=== PATIENT | female | born 1965 | race Caucasian/White ===

== ENCOUNTER 2018-06-14 11:00 | Outpatient (RCR) | payer MEDICAID, SELFPAY | END 2018-07-06 14:25 | disposition home or self-care (01) | LOC: PT.CARL 11:00 | PROVIDERS: Visit Provider Nurse Practitioner Family | DX: M25.552 Pain in left hip (principal); M25.551 Pain in right hip | CPT/HCPCS: 97014; 97110; 97163; G0283 ==

== ENCOUNTER → 2021-01-10 14:10 | Outpatient (CLI) | payer MEDICAID, SELFPAY ==
[2021-01-10 14:20] LABS: Basophils % 0.5 % (0.1-2.0); Eosinophils # 0.1 K/mm3 (0.0-0.4); Hematocrit 41.2 % (37.0-47.0); Hemoglobin 13.5 g/dL (12.2-16.2); Lymphocytes # 2.3 K/mm3 (0.7-4.5); Lymphocytes % 27.6 % (10-50); Mean Corpuscular HGB Conc 32.8 g/dL (31.8-35.4); Mean Corpuscular Hemoglobin 30.4 pg (27.0-31.2); Mean Corpuscular Volume 92.7 fl (81-99); Mean Platelet Volume 8.4 fl (7.4-10.4); Monocytes # 0.7 K/mm3 (0.1-1.0); Monocytes % 8.1 % (1.7-9.3); Neutrophils # 5.3 K/mm3 (1.8-7.8); Neutrophils % 62.8 % (37.0-80.0); Platelet Count 695 K/mm3 (142-424); Red Blood Count 4.44 M/mm3 (4.20-5.40); Red Cell Distribution Width 13.7 % (11.5-17.5); White Blood Count 8.5 K/mm3 (4.8-10.8)
[2021-01-10 14:21] LABS: Alanine Aminotransferase 24 U/L (12-78); Albumin Level 3.7 g/dl (3.5-5.0); Albumin/Globulin Ratio 1.4 (1.1-1.8); Alkaline Phosphatase 102 U/L (38-126); Anion Gap 13.7 mEq/L (5-15); Aspartate Amino Transferase 24 U/L (14-36); Bilirubin,Total 0.4 mg/dl (0.2-1.3); Blood Urea Nitrogen 8 mg/dl (7-17); Calcium 9.3 mg/dl (8.4-10.2); Carbon Dioxide 25 mmol/L (22.0-30.0); Chloride 107 mmol/L (98-107); Chol/HDL Ratio 3.6 (1-3.5); Cholesterol 180 mg/dl (140-200); Estimated Glomerular Filt Rate 128 ml/min (>60); GFR (African American) 155 ML/MIN (>60); Globulin 2.7 g/dL (1.3-3.2); Glucose 99 mg/dl (74-100); HDL Cholesterol 50 mg/dl (40-60); Potassium 4.7 mmoL/L (3.5-5.1); Sodium 141 mmol/L (136-145); Total Protein,Serum 6.4 g/dl (6.3-8.2); Triglycerides 169 mg/dl (30-150); VLDL Cholesterol 34 mg/dL (0-40)
[2021-01-10 14:32] LABS: Direct LDL Cholesterol 92.49 mg/dL (100-129)
[2021-01-10 14:38] LABS: 25-OH Vitamin D, Total 17.8 ng/mL (30-100)
[2021-01-10 14:39] LABS: Free T4 (Free Thyroxine) 1.34 ng/dl (0.78-2.19)
[2021-01-10 14:52] LABS: Thyroid Stimulating Hormone 0.72 uIU/mL (0.465-4.68)
== END ==
PROVIDERS: Visit Provider Emergency Medicine
DX: R53.83 Other fatigue (principal); E55.9 Vitamin D deficiency, unspecified; Z79.899 Other long term (current) drug therapy
CPT/HCPCS: 80053; 80061; 82306; 84439; 84443; 85025

== ENCOUNTER 2021-02-02 08:41 | Emergency (ER) | payer MEDICAID, SELFPAY ==
[2021-02-02 08:42] VITALS: BP 120/63; PULSE 90; RESP 20; TEMP 37; O2SAT 98; BMI 27.9
--- NOTE | 2021-02-02 08:57 | XR_ITS ---
PROCEDURE INFORMATION: Exam: XR Chest Exam date and time: 02/02/2021 8:57 AM Age: 55 years old Clinical indication: Shortness of breath; Additional info: SOA TECHNIQUE: Imaging protocol: XR of the chest. Views: 1 view. COMPARISON: ROYCE SHOU3R [id number] [id number] 09/05/2014 1:40 PM FINDINGS: Lungs: There are small peripheral infiltrates in the right upper lobe laterally in the left mid lung field. Pleural spaces: No pleural effusion. No pneumothorax. Heart/Mediastinum: No cardiomegaly. Bones/joints: Unremarkable. IMPRESSION: 1. Small peripheral infiltrates, a nonspecific finding. An atypical pneumonia including viral pneumonia should be excluded. 2. A follow-up PA and lateral radiograph is recommended.
[2021-02-02 08:59] LABS: Coronavirus 19, PCR Not Detected (NotDetected); Influenza A, PCR Not Detected (NotDetected); Influenza B, PCR Not Detected (NotDetected)
--- NOTE | 2021-02-02 09:00 | HMH.EDGENADL ---
ED Disposition Clinical Impression: Upper respiratory infection, URI (upper respiratory infection) Disposition: Home, Self-Care Condition on Discharge: Fair Instructions: DI for Acute Bronchitis Referrals: Ty Waggoner MD [Primary Care Provider] - - Critical Care Critical Care Time: No Attestation: On , the high probability of a clinically significant, sudden or life threatening deterioration of the following system(s) required my full and direct attention, intervention and personal management. The time I documented below is in addition to time spent performing reported procedures but includes the following listed in this critical care notation. Medical Decision Making - Medical Records Medical records reviewed: Yes: I reviewed the patient's medical records. - Maurice Inquiry Pt receiving controlled substance: No Maurice was queried for this patient: No Vital Signs: 02/02/21 08:42 Temperature 98.6 F Temperature Source Oral Pulse Rate [Radial] 90 Respiratory Rate 20 Blood Pressure [Right Arm] 120/63 Blood Pressure Mean [Right Arm] 82 Blood Pressure Position [Right Arm] Sitting 02 Sat by Pulse Oximetry 98 Oxygen Delivery Method Room Air Orders (Tests/Meds): ED MEDICATIONS Discontinued Medications Generic Name Dose Route Start Last Admin Trade Name Freq PRN Reason Stop Dose Admin Dexamethasone 10 mg 02/02/21 08:57 Dexamethasone 1mg/1ml Intensol 10ml Udc (Er) PO 02/02/21 08:58 ONCE ONE ORDERS Category Date Time Status XR chest portable Stat Exams 02/02/21 08:57 Taken Complete Blood Count Auto Diff Stat Lab 02/02/21 08:57 Ordered Comprehensive Metabolic Panel Stat Lab 02/02/21 08:57 Ordered Rapid PCR Covid and Flu A/B Stat Lab 02/02/21 08:55 Received Medical Decision Narrative: To the emergency department with chief complaint of cough, rhinorrhea, ocular aches. Differential diagnosis includes upper respiratory infection, pneumonia, COPD exacerbation, hypokalemia, medication side effect. Given this plan order CBC, CMP, chest x-ray, treat patient with dexamethasone, nebs. On evaluation patient was hemodynamically stable, vitals within normal limits. General Adult HPI - General Chief complaint: Upper Respiratory Infection Stated complaint: Diarrhea,cough,weakness Time Seen by Provider: 02/02/21 08:50 Mode of Arrival: Ambulatory Source of Information: Patient, Medical Record Limitations: No Limitations Description of Symptoms (Recalled from ER Triage Doc. by RN): TO ED PER [facility] CAR WITH C/O COUGH, CONGESTION, GENERALIZED ACHES, SOB, PAIN LT SIDE LUNG X 2 DAYS. PT STATES I THINK I'VE BEEN RUNNING A FEVER . - History of Present Illness HPI narrative: COPD, emphysema, sleep apnea who is presenting with chief complaint of her, shortness of breath, muscular aches and diarrhea. She states that she has had these symptoms for 3 days. She does have inhalers at home, but went to stay with her sister last night did not take them nor was she on her CPAP last night. She believes she has had a fever but does not know the temperature. She had a runny bowel movements, but no emesis, abdominal pain, nausea. She has a productive cough, that seems different from her previous cough. She had Covid in October. She denies any chest pain. - Related Data Home Medications Medication Instructions Recorded Confirmed albuterol sulfate 90 mcg/actuation 2 puff INHALATION Q4-6H PRN 12/13/20 01/10/21 aerosol inhaler diclofenac sodium 75 mg 75 mg PO .qd PRN tab 12/13/20 01/10/21 tablet,delayed release fluticasone fur. 100 mcg-umeclid 1 inh INHALATION DAILY 12/13/20 01/10/21 62.5 mcg-vilant 25 mcg inhalat.powder furosemide 20 mg tablet 20 mg PO DAILY tab 12/13/20 01/10/21 metoprolol succinate 25 mg 25 mg PO DAILY 12/13/20 01/10/21 tablet,extended release 24 hr nicotine 21 mg/24 hr daily 1 patch TRANSDERMA DAILY 12/13/20 01/10/21 transdermal patch omeprazole 40 mg c
[2021-02-02 09:25] LABS: Basophils # 0.1 K/mm3 (0-0.2); Basophils % 0.5 % (0.1-2.0); Eosinophils # 0.2 K/mm3 (0.0-0.4); Eosinophils % 2.1 % (0.1-12.0); Hematocrit 39.9 % (37.0-47.0); Hemoglobin 12.8 g/dL (12.2-16.2); Lymphocytes # 2.6 K/mm3 (0.7-4.5); Lymphocytes % 28.3 % (10-50); Mean Corpuscular Hemoglobin 31.1 pg (27.0-31.2); Mean Corpuscular Volume 97.2 fl (81-99); Mean Platelet Volume 7.9 fl (7.4-10.4); Monocytes # 0.4 K/mm3 (0.1-1.0); Monocytes % 4.2 % (1.7-9.3); Neutrophils # 5.9 K/mm3 (1.8-7.8); Neutrophils % 64.9 % (37.0-80.0); Platelet Count 486 K/mm3 (142-424); Red Cell Distribution Width 14.5 % (11.5-17.5); White Blood Count 9.1 K/mm3 (4.8-10.8)
[2021-02-02 09:29] LABS: Chloride 109 mmol/L (98-107); Potassium 3.7 mmoL/L (3.5-5.1); Sodium 140 mmol/L (136-145)
[2021-02-02 09:32] LABS: Alanine Aminotransferase 24 U/L (12-78); Albumin Level 3.6 g/dl (3.5-5.0); Albumin/Globulin Ratio 1.2 (1.1-1.8); Alkaline Phosphatase 107 U/L (38-126); Anion Gap 8.7 mEq/L (5-15); Aspartate Amino Transferase 27 U/L (14-36); Bilirubin,Total 0.2 mg/dl (0.2-1.3); Blood Urea Nitrogen 7 mg/dl (7-17); Carbon Dioxide 26 mmol/L (22.0-30.0); Creatinine Clearance Estimated 112 mL/min (50-200); Estimated Glomerular Filt Rate 87 ml/min (>60); GFR (African American) 105 ML/MIN (>60); Glucose 109 mg/dl (74-100); Total Protein,Serum 6.6 g/dl (6.3-8.2)
[2021-02-02 10:44] VITALS: BP 123/65; PULSE 78; RESP 18; TEMP 36.6; O2SAT 98
== END 2021-02-02 10:46 | disposition home or self-care (01) ==
PROVIDERS: Emergency Provider Emergency Medicine; PCP Emergency Medicine
DX: J44.1 Chronic obstructive pulmonary disease with (acute) exacerbation (principal); J44.0 Chronic obstructive pulmonary disease with (acute) lower respiratory infection; I25.10 Atherosclerotic heart disease of native coronary artery without angina pectoris; E78.5 Hyperlipidemia, unspecified; F17.210 Nicotine dependence, cigarettes, uncomplicated; Z79.899 Other long term (current) drug therapy
CPT/HCPCS: 71045; 80053; 85025; 96374; 99283; U0003

== ENCOUNTER → 2021-02-13 10:52 | Outpatient (CLI) | payer MEDICAID, SELFPAY ==
[2021-02-13 12:18] LABS: NT Pro Brain Natriuretic Pep. 64.3 pg/mL (0-125)
== END ==
PROVIDERS: Visit Provider Internal Medicine Cardiovascular Disease
DX: R06.02 Shortness of breath (principal)
CPT/HCPCS: 36415; 83880

== ENCOUNTER → 2021-03-03 12:11 | Outpatient (CLI) | payer MEDICAID, SELFPAY ==
--- NOTE | 2021-03-03 12:12 | CA_ITS ---
APPROVED REPORT EXAM: Comprehensive 2D, Doppler, and color-flow Echocardiogram Lowerator Operator: Rosaura Pride RDCS Ht: 5 ft 6 in Wt: 172lbs BSA: 1.88 BP: 114/73 mmHg Indications: CP 2D Dimensions LVOT 1.81 cm (M/F) 1.5-2.5 M-Mode Dimensions RVDd 2.28 cm (0.9-2.6) LA Diam 2.71 cm (1.9-4.0) LVDd 5.57 cm (3.5-5.7) Ao Diam 3.20 cm (2.0-3.7) LVDs 3.45 cm (3.5-5.7) IVSd 0.76 cm (0.6-1.1) PWd 0.99 cm (0.6-1.1) EF (Teich) 67.70% FS 38.10% EDV (Teich) 151.80 mL TAPSE 2.02 (<1.7) ESV (Teich) 49.10 mL LV Diastology E Decel Time 243.00 (160-240 msec) E/A Ratio 0.9 MED E' 5.80 (< 7 cm/sec) E'/MED E' Ratio 12.79 (>14) LAT E' 8.40 (<10 cm/sec) E/LAT E' Ratio 8.83 (>14) Aortic Valve LVOT Max 138.00 (70-110 cm/s) LVOT VTI 25.81 cm AoV Peak Melvin. 166.00 (50-130 cm/s) AI PHT 715.00 ms AO Peak GR. 11.10 mmHg AO Mean GR. 5.50 (<5 mmHg) AO VTI 29.77 (18-25 cm) TARAS (VTI) 2.23 (2.5-4.5 cm2) Mitral Valve MV E Max Melvin. 74.00 (40-130 cm/s) MV A Velocity 86.00 (40-130 cm/s) E/A Ratio 0.86 MV Decel. Time 243.00 (160-240 ms) MV PHT 71.00 ms Left Ventricle Left atrium is mildly enlarged, left ventricle is normal size, left ventricle wall thickness is upper limit of normal, there is preserved left ventricular systolic function, visually estimated ejection fraction 55% with no regional wall motion abnormality, Doppler evidence of impaired LV relaxation seen, tissue Doppler is not indicated above raise left atrial pressure. Right Ventricle Right atrium and right ventricle are normal size and contractility. Aortic Valve Aortic valve is minimally thickened and fibrosed, there is no aortic stenosis, there is mild aortic insufficiency. Mitral Valve Mitral valve grossly normal, there is trace mitral regurgitation. Tricuspid Valve Tricuspid valve grossly normal, there is trace tricuspid regurgitation, tricuspid regurgitation jet velocity is inadequate for calculation of the right ventricular systolic pressure. Pulmonic Valve Pulmonic valve is poorly visualized. Great Vessels Aortic root is normal size. Pericardium No significant pericardial effusion noted. Conclusion 1. Mildly enlarged left atrium, normal left ventricular size, visually estimated ejection fraction 55% with no regional wall motion abnormality, Doppler evidence of impaired LV relaxation seen, tissue Doppler is not indicated above raise left atrial pressure. 2. Mild aortic, trace mitral and tricuspid regurgitation. 3. No significant pericardial effusion noted. Electronically signed by : Eric Blanchard MD 03/03/2021 19:29:29
--- NOTE | 2021-03-03 12:12 | CA_ITS ---
APPROVED REPORT Correctional Counselor: SHADI Laterality: Bilateral Study Quality: Good Indications: dyspnea/tob use Risk Factors Hypertension: Doppler Spectral Velocity Analysis dICA (R) 51.10/22.10 cm/s dICA (L) 84.80/35.10 cm/s Sowmya (R) 56.00/20.50 cm/s Sowmya (L) 61.30/21.30 cm/s pICA (R) 52.80/16.40 cm/s pICA (L) 47.00/17.60 cm/s dCCA (R) 86.00/23.40 cm/s dCCA (L) 63.60/15.30 cm/s pCCA (R) 67.40/18.20 cm/s pCCA (L) 77.80/19.70 cm/s Vert (R) 51.30/15.50 cm/s Vert (L) 63.90/16.30 cm/s ICA/CCA 0.70 ICA/CCA 1.30 Findings The right carotid arterial system appeared to be normal without stenosis of the bulb or internal carotid artery. The left carotid arterial system appeared to be normal without stenosis of the bulb or internal carotid artery. Antegrade flow seen bilateral vertebral arteries. Conclusion The right carotid arterial system appeared to be normal without stenosis of the bulb or internal carotid artery. The left carotid arterial system appeared to be normal without stenosis of the bulb or internal carotid artery. Antegrade flow seen bilateral vertebral arteries. Electronically signed by : Srinath Ochoa MD 03/03/2021 17:15:12
--- NOTE | 2021-03-03 13:06 | CT_ITS ---
PROCEDURE: CT CHEST WO CON CLINICAL INDICATION: dyspnea/tob use COMPARISON: CR XR CHEST PORTABLE from 02/02/2021 TECHNIQUE: Axial images obtained with sagittal and coronal reformats. All CT scans at the facility use one or more dose reduction, viz: automated exposure control, ma/kV adjustment per patient size (including targeted exams where dose is matched to indication, i.e. head), or iterative reconstruction technique. FINDINGS: HEART AND MEDIASTINAL STRUCTURES: There are few scattered mildly prominent mediastinal lymph nodes the largest in the precarinal region at 2.2 by 1 cm. LUNGS AND PLEURAL SPACES: COPD changes with centrilobular emphysema. There is a right apical bulla at 3.5 cm. There are scattered areas of scarring. A 4 mm noncalcified nodules present in the right upper lobe anteriorly the 39 series 3. No suspicious nodules apparent. There are some fibrotic changes in the right upper lobe laterally. No effusions. No lobar consolidation or collapse. BONY STRUCTURES: No acute bony abnormalities apparent. UPPER ABDOMEN: There is a isodense lesion of the left kidney measuring near water density at 2.5 cm suggesting left renal cyst. This is incompletely imaged. ADDITIONAL FINDINGS: No other significant abnormalities. IMPRESSION: COPD with centrilobular emphysema with scattered areas of scarring. Mildly prominent mediastinal lymph nodes. Previously noted increased density in the right upper lobe on the chest x-ray of 02/02/2021 is felt to be related to an area of scarring. There is a 4 mm nodule in the right upper lobe nonspecific. No suspicious nodules are apparent. Suggest 12 month follow-up in this patient with positive smoking history. Isodense lesion left kidney suggesting a renal cyst. Dictated by: Srinath Ochoa MD 03/04/2021 12:48 Srinath Ochoa MD in [facility] 03/04/2021 12:48
== END ==
PROVIDERS: PCP Emergency Medicine; Visit Provider Internal Medicine Cardiovascular Disease
DX: R06.00 Dyspnea, unspecified (principal); I65.23 Occlusion and stenosis of bilateral carotid arteries; J44.9 Chronic obstructive pulmonary disease, unspecified; E78.5 Hyperlipidemia, unspecified; K21.9 Gastro-esophageal reflux disease without esophagitis; G47.33 Obstructive sleep apnea (adult) (pediatric); Z72.0 Tobacco use; Z99.89 Dependence on other enabling machines and devices
CPT/HCPCS: 71250; 93306; 93880

== ENCOUNTER → 2021-03-17 14:07 | Outpatient (CLI) | payer MEDICAID, SELFPAY ==
--- NOTE | 2021-03-17 14:10 | XR_ITS ---
PROCEDURE: XR LUMBAR SPINE MIN 4V CLINICAL INDICATION: back pain COMPARISON: No exams were available for comparison FINDINGS: There is degenerative disc disease at T11-T12 and L5-S1 and to lesser degree at L2-L3 and L4-L5. No fracture or dislocation. No lytic or blastic change. Other findings:Mild degenerative changes the left SI joint. IMPRESSION: Lumbar spondylosis as described above Dictated by: Srinath Ochoa MD 03/17/2021 15:36 Srinath Ochoa MD in [facility] 03/17/2021 15:36
--- NOTE | 2021-03-17 14:10 | XR_ITS ---
PROCEDURE: XR HIP LT 2-3V W/PELVIS CLINICAL INDICATION: hip pain COMPARISON: No exams were available for comparison FINDINGS: No fracture or dislocation is evident. No significant degenerative change. No lytic or blastic change. Unremarkable soft tissues. IMPRESSION: No acute findings. Dictated by: Srinath Ochoa MD 03/17/2021 15:39 Srinath Ochoa MD in [facility] 03/17/2021 15:39
--- NOTE | 2021-03-17 14:10 | XR_ITS ---
PROCEDURE: XR HIP RT 2-3V W/PELVIS CLINICAL INDICATION: hip pain COMPARISON: CR XR HIP LT 2-3V W/PELVIS from 03/17/2021 FINDINGS: No fracture or dislocation is evident. No significant degenerative change. No lytic or blastic change. Unremarkable soft tissues. IMPRESSION: No acute findings. Dictated by: Srinath Ochoa MD 03/17/2021 15:14 Srinath Ochoa MD in [facility] 03/17/2021 15:14
== END ==
PROVIDERS: PCP Emergency Medicine; Visit Provider Emergency Medicine
DX: M25.552 Pain in left hip (principal); M25.551 Pain in right hip; M54.9 Dorsalgia, unspecified
CPT/HCPCS: 72110; 73502

== ENCOUNTER → 2021-03-27 10:17 | Outpatient (POV) | payer MEDICAID, SELFPAY ==
[2021-03-27 11:02] VITALS: BP 118/80; PULSE 88; RESP 18; O2SAT 92; BMI 27.9
--- NOTE | 2021-03-27 12:06 | HMH.PMCON ---
Assessment and Plan (1) Sacroiliitis Status: Chronic Category: Medical Code(s): M46.1 - Sacroiliitis, not elsewhere classified (2) Trochanteric bursitis Status: Chronic Category: Medical Code(s): M70.60 - Trochanteric bursitis, unspecified hip (3) CRPS (complex regional pain syndrome), type I, upper Status: Chronic Category: Medical Code(s): G90.519 - Complex regional pain syndrome I of unspecified upper limb - Assessment and plan all Dx Assessment and Plan for all problems:: Patient does have pain in her bilateral low back area, but worse to the left low back area left hip and left buttock, groin and leg. Pain is worse with standing. She she does say walking improves the pain somewhat, however. She does also report heat to improve the pain. Lying on her left side causes significant pain. She is tender palpation to her left SI joint and left trochanteric bursa. We will schedule the patient for a left SI joint injection. She has tried physical therapy for more than 6 weeks and continues with home stretching. Following these injections we will then proceed to scheduling the patient for SI injection to the right side and trochanteric bursa injection to the right side. She will likely need to be worked up in the future for her CRPS type one of her right upper extremity following surgery with Dr. Nadine Newby. We will see the patient back in the clinic after her injections left SI joint and left trochanteric bursa for reevaluation of symptoms. HPI - Data of Consult Patient: new to practice Consult date: 03/27/21 Requesting Physician: Alice Cardenas APRN - Consult Narrative Reason for consult: Low back pain, hip pain History of present illness: Ms. Stapleton is a 55 year old female who presents today for consultation for low back pain with radiation into bilateral hips. Patient says that she has worse pain, however in the left low back area at this time. She says the pain is in the left low back with radiation into the left buttock and left groin. The pain does radiate down her left lateral thigh area and stops behind the knee. She also has bilateral hand pain worse to the right hand. She reports having a history of carpal tunnel surgery bilaterally with Dr. Espinoza and did have a surgery to her right elbow with Dr. Nadine Newby. She has swelling, temperature changes, color changes and pain into her fingers and hand right side. She is right-hand dominant. She has a decreased production intern and sensation to the right hand. She is unable to grasp objects without having significant pain and weakness. She is also complaining of severe muscle spasms in her low back area. Patient says the pain in her low back is worse with standing and lying on her left side. She says walking helps as well as heat. She has had physical therapy for more than 6 weeks with minimal relief. She has tried ibuprofen as well. She does say that she takes methotrexate for treatment with rheumatology. She rates her pain a 7 out of 10 today. She is very tender to palpation to her left hip and her left low back area. Patient also continues with home stretching. CC: Alice Cardenas APRN [facility] History I have reviewed the patient's past medical history: Yes Medical History: Reports:: Chronic Obstructive Pulmonary Disease (COPD), Coronary Artery Disease, Hyperlipidemia *Have you ever received a pneumonia vaccine?: No *Have you received a flu vaccine this season?: Yes Other Medical History: Reports: Arthritis, Other Laterality Cases: Bilateral: Carpal Tunnel Release Other Surgeries: Yes: Cardiac Catheterization, Colonoscopy, Plastic Surgery, Tubal Ligation, Other Amputation: No Fractures: No - *Social History Smoking Status: Current every day smoker Tobacco Type: cigarettes # Packs/Day (cigarettes): 1 Alcohol Intake: never Substance Use Type: denies use *Occupational Status:: unemployed *Travel in the last 8 weeks: None Family Hx:: Coronary Artery Disease, Di
== END ==
PROVIDERS: Visit Provider Clinical Nurse Specialist Family Health
DX: M46.1 Sacroiliitis, not elsewhere classified (principal); M70.60 Trochanteric bursitis, unspecified hip; G90.519 Complex regional pain syndrome I of unspecified upper limb
CPT/HCPCS: 99202; G0463

== ENCOUNTER 2021-05-02 09:32 | Day surgery (SDC) | payer MEDICAID, SELFPAY ==
[2021-05-02 09:35] VITALS: BP 116/65; PULSE 91; RESP 18; TEMP 36.7; O2SAT 95; BMI 27.9
[2021-05-02 10:05] VITALS: BP 110/63; PULSE 94; RESP 18; O2SAT 95
[2021-05-02 10:07] VITALS: BP 115/68; PULSE 94; RESP 18; O2SAT 96
[2021-05-02 10:25] VITALS: BP 132/76; PULSE 87; RESP 20; O2SAT 96
--- NOTE | 2021-05-02 10:30 | P.PCN_ITS ---
- Procedure Date: 05/02/21 Time: 10:30 Anesthesiologist:: Torsten Sarah MD Complications:: None Pre-procedure Diagnosis:: Sacroiliitis. Trochanteric bursitis. Post-procedure Diagnosis:: Same Indications for Procedure:: Patient is a pleasant 55-year-old white female who we are treating for low back pain and left hip pain. She is tender over the left SI joint. She is positive Hoa's test on left side. She is positive Teja test on left side. She is positive SI joint compression test on the left side. She is positive distraction test on left side. We will plan a left SI joint injection under fluoroscopy today to help with her pain symptoms. She is also tender over the left trochanteric bursa. We will also plan a left trochanteric bursa injection. Procedure Details:: Left SI joint injection under fluoroscopy Informed consent was obtained and the risks and benefits of the procedure was explained to the patient. Patient was taken to the procedure room. Patient was placed prone on the procedure table. The left hip was prepped using ChloraPrep. The skin and subcutaneous tissues were anesthetized using lidocaine. I placed a 22-gauge spinal needle into the inferior aspect of the left SI joint. Needle placement was confirmed with dye. After this we injected 5 mL bupivacaine 0.25% and Depo-Medrol 40 mg into the left SI joint. The patient tolerated the procedure well with no complication. Left trochanteric bursa injection under fluoroscopy informed consent was obtained and the risk and benefits of the procedure was explained to the patient. The patient was taken to procedure room and placed prone on the procedure table. The left hip was prepped using ChloraPrep. The skin and subcutaneous tissues were anesthetized using lidocaine. I placed a 22- gauge spinal needle under fluoroscopic guidance and advanced until it contacted the left greater trochanter. Needle placement was confirmed with dye. After this we injected 5 mL bupivacaine 0.25% and Depo-Medrol 40 mg. Patient tolerated the procedure well with no complications. Plan and Disposition:: We will follow-up with her in 2 weeks. Will reevaluate symptoms at that time.
== END 2021-05-02 10:25 | disposition home or self-care (01) ==
LOC: SC.PAINP 09:33
PROVIDERS: PCP Emergency Medicine; Visit Provider Anesthesiology
DX: M46.1 Sacroiliitis, not elsewhere classified (principal); M70.62 Trochanteric bursitis, left hip; I25.10 Atherosclerotic heart disease of native coronary artery without angina pectoris; E78.5 Hyperlipidemia, unspecified; J44.9 Chronic obstructive pulmonary disease, unspecified; Z72.0 Tobacco use; F41.9 Anxiety disorder, unspecified; F32.A Depression, unspecified; K75.9 Inflammatory liver disease, unspecified; Z79.82 Long term (current) use of aspirin; Z79.899 Other long term (current) drug therapy
CPT/HCPCS: 20610; 27096; 77002; G0260; J1040; Q9966

== ENCOUNTER → 2021-05-20 09:22 | Outpatient (POV) | payer MEDICAID, SELFPAY ==
[2021-05-20 09:33] VITALS: BP 155/87; PULSE 95; RESP 18; O2SAT 95; BMI 27.9
--- NOTE | 2021-05-20 11:03 | HMH.PAINSOAP ---
[facility] Pain Management SOAP Note Subjective:: Patient is a pleasant 55-year-old who is here for follow-up after a left SI injection. Patient is currently being treated for bilateral sacroiliitis. On May 02, 2021, patient had a left SI injection and left trochanteric bursa injection. Patient states that she had about 80 to 90% relief after the injections. We will schedule patient for a right SI injection since it is also positive for rajinder, ann, compression and distraction tests. Today, patient is more worried about her worsening left shoulder pain that started in the week of . Patient denies any trauma or falls that could contribute that his left shoulder pain. Patient states that she thought she just slept wrong. The pain is localized around her shoulder muscles, left rhomboids and pectoralis muscles. Currently, the patient says that she is having pain whenever she moves her left shoulder and cannot carry anything heavy on it. Patient states that she is taking gabapentin 600 mg 3 times a day for neuropathic pain that is prescribed by Dr. Waggoner but this medication is not helping her shoulder pain. She rates her pain as 9 out of 10. Her Maurice is [phone] with a morphine equivalent of 0. Review of Systems General: No recent weight changes, no fever, no sleep disturbances Respiratory: No cough, no shortness of air, no recurring pulmonary infections Cardiovascular/peripheral vascular: No chest pain, no palpitations, no edema, no shortness of breath Gastrointestinal: No new onset incontinence, normal bowel movements reported Genitourinary: No new onset incontinence Musculoskeletal: left shoulder pain, rhomboid pain, pectoralis muscle pain Psychiatric: [Normal mood/affect] Neurological: [Denies weakness in extremities], [denies balance issues] Objective:: Physical exam General: Alert and oriented x3, no acute distress, pleasant and cooperative Lungs: Respirations even and unlabored, symmetrical chest expansion Eyes: PERRL Left Shoulder: tender to palpation around the shoulder muscles, rhomboid, and pectoralis muscles. Limited ROM d/t to pain. Patient unable to abduct left arm past 90 degrees. +wheat, +Jennifer's test Right SI: +rajinder,+ann, +compression and distraction Neurological: Speech clear, no gross sensory deficit Assessment:: Sacroiliitis Left shoulder pain Plan:: Patient had about 80 to 90% relief after a left SI injection. Patient has positive rajinder, ann, compression and distraction on the right SI. We will schedule the patient for a right SI injection. Risks and benefits of the procedure have been explained to the patient. Patient would like to proceed with the procedure. Patient has been complaining of worsening left shoulder pain. Denies trauma or falls. Patient has +hawkin's and +jennifer's test. We will order an MRI of her left shoulder we will follow up with the patient once we get these imagings. In the meantime, we will also order tramadol 50 mg 3 times a day for 1 month. Patient has been instructed to contact the clinic with any concerns before the next appointment. Dr. Sarah has reviewed this note and agrees with this plan of care. This note was dictated using voice recognition software and make contain errors or omissions. [facility] History Medical History: Reports:: Anxiety, Chronic Obstructive Pulmonary Disease (COPD), Coronary Artery Disease, Depression, Gastroesophageal Reflux Disease(GERD), Hyperlipidemia Denies:: Cancer, Diabetes Mellitus Type 1, Diabetes Mellitus Type 2, MRSA, Seizures *Have you ever received a pneumonia vaccine?: Yes *Have you received a flu vaccine this season?: Yes Other Medical History: Reports: Arthritis, Other. Denies: Blood Transfusion Reaction Laterality Cases: Bilateral: Carpal Tunnel Release Other Surgeries: Yes: Cardiac Catheterization, Colonoscopy, Plastic Surgery, Tubal Ligation, Other Amputation: No Fractures: No - *Social History Smoking Statu
== END ==
PROVIDERS: Visit Provider Clinical Nurse Specialist Family Health
DX: M46.1 Sacroiliitis, not elsewhere classified (principal); M25.512 Pain in left shoulder
CPT/HCPCS: 99212; G0463

== ENCOUNTER → 2021-05-27 10:17 | Outpatient (CLI) | payer MEDICAID, SELFPAY ==
--- NOTE | 2021-05-27 10:18 | MR_ITS ---
PROCEDURE INFORMATION: Exam: MR Left Upper Extremity Joint Without Contrast; Shoulder Exam date and time: 05/27/2021 10:18 AM Age: 55 years old Clinical indication: Patient HX: Left shoulder pain into elbow x1 month, limited range of motion TECHNIQUE: Imaging protocol: MR of the Left upper extremity without contrast. Exam focused on the shoulder. COMPARISON: CT CHEST WO CON 03/03/2021 1:39 PM FINDINGS: Bones and cartilage: No fracture or suspicious marrow signal. Minimal osteoarthritis. Tiny degenerative subchondral cyst humeral head superiorly. Joint spaces: No joint effusion. Glenoid labrum: Suspect normal variant sublabral foramen mimicking a tear of the anterior superior labrum. The remainder of the labrum appears unremarkable. No other internal derangement. Supraspinatus tendon: Unremarkable. No evidence of tear. Infraspinatus tendon: Unremarkable. No evidence of tear. Subscapularis tendon: Unremarkable. No evidence of tear. Teres minor tendon: Unremarkable. No evidence of tear. Tendon of biceps brachii: Unremarkable. No evidence of tear. Glenohumeral ligaments: Unremarkable. Muscles: Unremarkable. Soft tissues: Unremarkable. IMPRESSION: 1. No fracture or suspicious marrow signal. Minimal osteoarthritis. 2. Suspect normal variant sublabral foramen mimicking a tear of the anterior superior labrum. The remainder of the labrum appears unremarkable. No other internal derangement.
== END ==
PROVIDERS: PCP Emergency Medicine; Visit Provider Clinical Nurse Specialist Family Health
DX: M25.512 Pain in left shoulder (principal)
CPT/HCPCS: 73221

== ENCOUNTER → 2021-06-10 08:58 | Outpatient (POV) | payer MEDICAID, SELFPAY ==
[2021-06-10 09:12] VITALS: BP 158/77; PULSE 87; RESP 18; O2SAT 94; BMI 28.5
--- NOTE | 2021-06-10 09:45 | HMH.PAINSOAP ---
[facility] Pain Management SOAP Note Subjective:: Patient is a 55-year-old white female who presents today for follow-up. She recently had an MRI left shoulder. She is having difficulty raising her arm and reports to be having left axilla pain as well as left anterior chest pain. Patient says that she feels it is musculoskeletal in nature. She is managed with tramadol 50 mg 1 tablet p.o. 3 times daily in the clinic as well as undergoes injective therapy. She is scheduled for a left SI injection as well as a left trochanteric bursa injection on November 11. She is here to review her MRI. Today, she rates her pain at a 5 out of 10. Pain is in the left low back area, left hip and left shoulder Review of Systems General: No recent weight changes, no fever, no sleep disturbances Respiratory: No cough, no shortness of air, no recurring pulmonary infections Cardiovascular/peripheral vascular: No chest pain, no palpitations, no edema, no shortness of breath Gastrointestinal: No new onset incontinence, normal bowel movements reported Genitourinary: No new onset incontinence Musculoskeletal: Left low back pain, left hip pain, left shoulder pain Psychiatric: [Normal mood/affect] Neurological: [Denies weakness in extremities], [denies balance issues] Objective:: Physical exam General: Alert and oriented x3, no acute distress, pleasant and cooperative Lungs: Respirations even and unlabored, symmetrical chest expansion Eyes: PERRL Musculoskeletal: Flexion and extension of lumbar [spine] and left upper extremity somewhat guarded secondary to pain, [antalgic gait noted] Neurological: Speech clear, no gross sensory deficit Assessment:: Left sacroiliitis, left trochanteric bursitis, left shoulder pain Plan:: Patient did review her MRI today. She has minimal pathology noted to the MRI. She does have notable trigger points to her left shoulder area. She is scheduled for left SI injection and left trochanteric bursa injection on June 13. Following that injection we will plan for possible left upper trapezius and cervical paraspinous trigger point injections. She is in agreement. We will follow-up with her after her left SI injection left trochanteric bursa injection. Possible side effects of corticosteroids have been discussed with the patient. Risks and benefits of the procedure have been explained to the patient. Patient would like to proceed with the procedure. Patient has been instructed to contact the clinic with any concerns before the next appointment. Dr. Sarah has reviewed this note and agrees with this plan of care. This note was dictated using voice recognition software and make contain errors or omissions. [facility] History I have reviewed the patient's past medical history: Yes Medical History: Reports:: Anxiety, Chronic Obstructive Pulmonary Disease (COPD), Coronary Artery Disease, Depression, Gastroesophageal Reflux Disease(GERD), Hyperlipidemia Denies:: Cancer, Diabetes Mellitus Type 1, Diabetes Mellitus Type 2, MRSA, Seizures *Have you ever received a pneumonia vaccine?: Yes *Have you received a flu vaccine this season?: Yes Other Medical History: Reports: Arthritis, Other. Denies: Blood Transfusion Reaction Laterality Cases: Bilateral: Carpal Tunnel Release Other Surgeries: Yes: Cardiac Catheterization, Colonoscopy, Plastic Surgery, Tubal Ligation, Other Amputation: No Fractures: No - *Social History Smoking Status: Current every day smoker Tobacco Type: cigarettes # Packs/Day (cigarettes): 1 Alcohol Intake: never Substance Use Type: denies use *Occupational Status:: unemployed *Travel in the last 8 weeks: None - Psychiatric History Pschychiatric History:: Reports:: Anxiety, Depression Family Hx:: Coronary Artery Disease, Diabetes, Heart Attack, Hyperlipidemia, Hypertension, Cancer, Stroke, Thyroid Disorder, Substance abuse, Alcoholism, Mental illness
== END ==
PROVIDERS: Visit Provider Clinical Nurse Specialist Family Health
DX: M46.1 Sacroiliitis, not elsewhere classified (principal); M25.512 Pain in left shoulder; M70.62 Trochanteric bursitis, left hip
CPT/HCPCS: 99212; G0463

== ENCOUNTER 2021-06-27 10:09 | Day surgery (SDC) | payer MEDICAID, SELFPAY ==
[2021-06-27 10:32] VITALS: BP 111/85; PULSE 74; RESP 18; TEMP 36.8; O2SAT 96; BMI 28.7
[2021-06-27 11:17] VITALS: BP 109/67; PULSE 72; RESP 18; O2SAT 97
[2021-06-27 11:18] VITALS: PULSE 72; RESP 18; O2SAT 96
--- NOTE | 2021-06-27 11:27 | P.PCN_ITS ---
- Procedure Date: 06/27/21 Time: 11:27 Anesthesiologist:: Torsten Sarah MD Complications:: None Pre-procedure Diagnosis:: Sacroiliitis and trochanteric bursitis Post-procedure Diagnosis:: Same Indications for Procedure:: Patient is a pleasant 55-year-old white female who we are treating for right- sided hip pain. She is tender over the right SI joint. She has a positive Hoa's test on the right side. She is positive Teja test on the right side. She is positive SI joint compression test on the right side. We will plan a right SI joint injection under fluoroscopy today. She also is tender over the right trochanteric bursa. We will also do a right trochanteric bursa injection under fluoroscopy as well. Procedure Details:: Right SI joint injection under fluoroscopy Informed consent was obtained and the risks and benefits of the procedure was going to the patient. Patient was taken to the procedure room. Patient was placed prone on the procedure table. The right hip was prepped using ChloraPrep. The skin and subcutaneous tissues were anesthetized using lidocaine. I placed a 22-gauge spinal needle into the inferior aspect of the right SI joint. Needle placement was confirmed with dye. After this we injected 5 mL bupivacaine 0.25% and Depo-Medrol 40 mg into the right SI joint. The patient tolerated the procedure well with no complication. Right trochanteric bursa injection under fluoroscopy informed consent was obtained and the risk and benefits of the procedure was explained to the patient. The patient was taken to the procedure room. The right hip was prepped using ChloraPrep. The skin and subcutaneous tissues were anesthetized using lidocaine. I placed a 22-gauge spinal needle and advanced under fluoroscopic guidance until it contacted the right greater trochanter. Needle placement was confirmed with dye. After this I injected bupivacaine 0.25% 5 mL and Depo-Medrol 40 mg into the right trochanteric bursa. Patient tolerated the procedure well with no complications. Plan and Disposition:: We will follow-up with this patient in 2 weeks. Will reevaluate symptoms at that time.
[2021-06-27 11:35] VITALS: BP 119/81; PULSE 73; RESP 20; O2SAT 96
== END 2021-06-27 11:35 | disposition home or self-care (01) ==
LOC: SC.PAINP 10:10
PROVIDERS: PCP Emergency Medicine; Visit Provider Anesthesiology
DX: M46.1 Sacroiliitis, not elsewhere classified (principal); M70.61 Trochanteric bursitis, right hip; I25.10 Atherosclerotic heart disease of native coronary artery without angina pectoris; E78.5 Hyperlipidemia, unspecified; J44.9 Chronic obstructive pulmonary disease, unspecified; K21.9 Gastro-esophageal reflux disease without esophagitis; F32.A Depression, unspecified; Z72.0 Tobacco use
CPT/HCPCS: 20610; 27096; 77002; G0260; J1040; Q9966

== ENCOUNTER → 2021-08-14 13:58 | Outpatient (POV) | payer MEDICAID, SELFPAY ==
[2021-08-14 14:33] VITALS: BP 138/72; PULSE 79; RESP 20; TEMP 36.7; O2SAT 95; BMI 28.7
--- NOTE | 2021-08-14 16:00 | P.CONS_ITS ---
[facility] Pain Management SOAP Note Subjective:: Patient is a pleasant 55-year-old female who presents today for follow-up. We are currently treating the patient for lateral Zacare ileitis, greater trochanteric bursitis, left shoulder pain. We are currently managing this patient with a combination of injective therapy, tramadol 50 mg and tizanidine. Patient denies any side effects from any of these medications and therapy. Today, patient states that she has been having worsening left shoulder pain and the tramadol is not helping manage her pain. She has been having issues with raising her left shoulder. MRI on 05/27/2021 shows a sublabral foramen mimicking a tear of the anterior superior labrum. Has not been referred to orthopedics. She rates her pain today as 8 out of 10. General: No recent weight changes, no fever, no sleep disturbances Respiratory: No cough, no shortness of air, no recurring pulmonary infections Cardiovascular/peripheral vascular: No chest pain, no palpitations, no edema, no shortness of breath Gastrointestinal: No new onset incontinence, normal bowel movements reported Genitourinary: No new onset incontinence Musculoskeletal: Left shoulder pain, bilateral SI pain Psychiatric: [Normal mood/affect] Neurological: [Denies weakness in extremities], [denies balance issues] Objective:: Bilateral sacroiliitis, left shoulder pain Assessment:: Bilateral sacroiliitis, trochanteric bursitis, left shoulder pain Plan:: We have been managing this patient with injective therapy, tramadol, and dieting. Patient has gotten some relief from injective therapy especially when we do SI injections. She would like to get a repeat SI injection in the future. Today, patient is complaining more on her left shoulder pain. She does have an MRI on 05/27/2021 which shows a sublabral foramen mimicking a tear of the anterior superior labrum. I would like to refer the patient to orthopedics for second opinion. At the moment, I will schedule the patient for a left intra- articular joint injection in her shoulder. Since the patient is not getting any relief from the tramadol, she is welcome to stop taking her tramadol. We will not refill this medication. I will also start the patient on Skelaxin 800 mg 3 times a day. She is also to stop taking her tizanidine. I will follow up with these medication changes during her injection. Patient has been instructed to contact the clinic with any concerns before the next appointment. Dr. Sarah has reviewed this note and agrees with this plan of care. This note was dictated using voice recognition software and make contain errors or omissions. [facility] History Medical History: Reports:: Anxiety, Chronic Obstructive Pulmonary Disease (COPD), Coronary Artery Disease, Depression, Gastroesophageal Reflux Disease(GERD), Hyperlipidemia, Hypertension Denies:: Cancer, Diabetes Mellitus Type 1, Diabetes Mellitus Type 2, MRSA, Seizures *Have you ever received a pneumonia vaccine?: Yes *Have you received a flu vaccine this season?: Yes Other Medical History: Reports: Arthritis, Other. Denies: Blood Transfusion Reaction Laterality Cases: Bilateral: Carpal Tunnel Release Other Surgeries: Yes: Cardiac Catheterization, Colonoscopy, Plastic Surgery, Tubal Ligation, Other Amputation: No Fractures: No - *Social History Smoking Status: Current every day smoker Tobacco Type: cigarettes # Packs/Day (cigarettes): 1 Alcohol Intake: never Substance Use Type: denies use *Occupational Status:: other *Travel in the last 8 weeks: None - Psychiatric History Pschychiatric History:: Reports:: Anxiety, Depre
== END ==
PROVIDERS: Visit Provider Student in an Organized Health Care Education/Training Program
DX: M46.1 Sacroiliitis, not elsewhere classified (principal); M70.60 Trochanteric bursitis, unspecified hip; M25.512 Pain in left shoulder
CPT/HCPCS: 99212; G0463

== ENCOUNTER 2021-08-22 13:47 | Day surgery (SDC) | payer MEDICAID, SELFPAY ==
[2021-08-22 13:53] VITALS: BP 114/72; BP 134/84; BP 136/86; PULSE 72; PULSE 74; PULSE 76; RESP 20; RESP 22; TEMP 36.7; O2SAT 96; BMI 27.9
--- NOTE | 2021-08-22 14:19 | P.PCN_ITS ---
- Procedure Date: 08/22/21 Time: 14:19 Anesthesiologist:: Darlin Mejia MD Complications:: None Pre-procedure Diagnosis:: Left shoulder primary osteoarthritis, left shoulder pain Post-procedure Diagnosis:: Same Indications for Procedure:: Patient is a very pleasant 55-year-old white female who presents today with left-sided shoulder pain related to the above diagnosis. She has tried and failed conservative treatment getting oral pain medications and home stretching program for greater than 6 weeks. RI of the left shoulder shows a sublabral foramen mimicking a tear of the anterior superior labrum. She is currently prescribed tramadol 50 mg and tizanidine. The plan for today is for the patient to undergo left-sided intrarticular shoulder injections. Procedure Details:: Informed consent was obtained. Risks and benefits of the procedure were explained to the patient. Patient was taken back to the procedure. The left shoulder was prepped using ChloraPrep. A 25-gauge needle was used first posteriorly in the medial to lateral trajectory the needle is advanced into the glenohumeral joint of the left shoulder was approached, at which point 3 mL of injectate solution of 5 mL of 1% lidocaine, 5 mL bupivacaine 0.25% and Depo- Medrol 40 mg was injected. Next the trajectory was adjusted so that the needle was advanced anteriorly and superiorly into the subacromial bursa of the shoulder, at which point 5 mL of the same injectate solution was injected. Patient tolerated the procedure well without any complications. Plan and Disposition:: Follow-up with this patient in 2 weeks. Will reevaluate pain symptoms at that time.
[2021-08-22 14:23] VITALS: BP 171/90; PULSE 77; RESP 20; O2SAT 97
== END 2021-08-22 14:25 | disposition home or self-care (01) ==
LOC: SC.PAINP 13:48
PROVIDERS: PCP Emergency Medicine; Visit Provider Anesthesiology Pain Medicine
DX: M19.012 Primary osteoarthritis, left shoulder (principal); J44.9 Chronic obstructive pulmonary disease, unspecified; I25.10 Atherosclerotic heart disease of native coronary artery without angina pectoris; F32.A Depression, unspecified; K21.9 Gastro-esophageal reflux disease without esophagitis; E78.5 Hyperlipidemia, unspecified; I10 Essential (primary) hypertension; M19.90 Unspecified osteoarthritis, unspecified site; Z72.0 Tobacco use
CPT/HCPCS: 20610; J1040

== ENCOUNTER → 2021-09-08 08:38 | Outpatient (POV) | payer MEDICAID, SELFPAY ==
[2021-09-08 08:52] VITALS: BP 133/83; PULSE 91; RESP 18; TEMP 36.9; O2SAT 95; BMI 27.9
--- NOTE | 2021-09-08 09:03 | HMH.PAINSOAP ---
[facility] Pain Management SOAP Note Subjective:: Patient is a pleasant 55-year-old female who presents today for follow-up. We have been treating this patient for left sacroiliitis, left greater trochanteric bursitis, left shoulder pain, and myofascial pain of the left rhomboid. We have been managing this patient with injective therapy. Patient gets 2 to 3 months of relief after each injection. Recently, patient had a left intra-articular shoulder injection that has helped significantly of about 80 to 90% relief. Denies any issues after the injection. Today, patient has been having worsening left SI pain and left lateral hip pain. Denies any recent falls or traumas. Patient states that she has been trying to use IcyHot's, creams, and hot tub with no relief of symptoms. Patient states that she has been having trouble with any daily activities because of her left SI pain. She cannot tolerate any prolonged sitting, walking, and standing. Rates pain today as 10 out of 10. Has tried some anti-inflammatory with no relief. She is also taking gabapentin 800 mg 3 times a day that is prescribed by Dr. Waggoner. [facility] #[id number] with an active morphine equivalent of 0. Review of Systems: General: No recent weight changes, no fever, no sleep disturbances Respiratory: No cough, no shortness of air, no recurring pulmonary infections Cardiovascular/peripheral vascular: No chest pain, no palpitations, no edema, no shortness of breath Gastrointestinal: No new onset incontinence, normal bowel movements reported Genitourinary: No new onset incontinence Musculoskeletal: Left hip pain, shoulder pain Psychiatric: [Normal mood/affect] Neurological: [Denies weakness in extremities], [denies balance issues] Objective:: Physical Exam: General: Alert and oriented x3, no acute distress, pleasant and cooperative, [on room air] Lungs: Respirations even and unlabored, symmetrical chest expansion Eyes: PERRL Musculoskeletal: Limited range of motion of the left hip secondary to pain. Left SI positive for MADDY, Marvin's, Fallentimber's, Gaenslen's, compression, and distraction. Left lateral hip is tender to palpation. Left rhomboid and below the left shoulder blade are tender to palpation. Neurological: Speech clear, no gross sensory deficit Assessment:: Left sacroiliitis Left greater trochanteric bursitis Myofascial pain of the left rhomboid Left shoulder pain Plan:: Patient has been having worsening left SI pain for the last several weeks. We have been managing this patient with injective therapy in the past which last her for 2 to 3 months. She cannot tolerate any prolonged activity such as sitting, standing, and walking. She has tried other conservative therapy such as physical therapy and at home exercises for greater than 6 weeks. Left SI is positive for MADDY, Marvin's, Fallentimber's, Gaenslen's, compression, and distraction. We will schedule the patient for a left SI injection and left greater trochanteric bursa injection. Risk and benefits have been discussed with the patient. Patient would like to proceed with the procedure. After this injection, we will schedule the patient for a trigger point injection of the left rhomboid. Follow-up after the injection. Patient has been instructed to contact the clinic with any concerns before the next appointment. Dr. Sarah has reviewed this note and agrees with this plan of care. This note was dictated using voice recognition software and make contain errors or omissions. [facility] History Medical History: Reports:: Anxiety, Chronic Obstructive Pulmonary Disease (COPD), Coronary Artery Disease, Depression, Gastroesophageal Reflux Disease(GERD), Hyperlipidemia, Hypertension Denies:: Cancer, Diabetes Mellitus Type 1, Diabetes Mellitus Type 2, MRSA, Seizures *Have you ever received a pneumonia vaccine?: Yes *Have you received a flu vaccine this season?: Yes Other Medical History: Reports: Arthritis, Other. Denies: Blood
== END ==
PROVIDERS: Visit Provider Student in an Organized Health Care Education/Training Program
DX: M46.1 Sacroiliitis, not elsewhere classified (principal); M70.62 Trochanteric bursitis, left hip; M79.12 Myalgia of auxiliary muscles, head and neck; M25.512 Pain in left shoulder
CPT/HCPCS: 99212; G0463

== ENCOUNTER 2021-09-12 10:16 | Day surgery (SDC) | payer MEDICAID, SELFPAY ==
[2021-09-12 10:25] VITALS: BP 134/72; PULSE 81; RESP 18; TEMP 36.9; O2SAT 96; BMI 27.9
[2021-09-12 10:33] VITALS: BP 110/65; PULSE 75; RESP 20; O2SAT 95
[2021-09-12 10:34] VITALS: BP 110/65; PULSE 77; O2SAT 96
[2021-09-12 10:40] VITALS: BP 124/78; PULSE 78; RESP 20; O2SAT 96
--- NOTE | 2021-09-12 10:42 | P.PCN_ITS ---
- Procedure Date: 09/12/21 Time: 10:42 Anesthesiologist:: Jori Nguyen CRNA Complications:: None Pre-procedure Diagnosis:: Left sacroiliitis. Left trochanteric bursitis Post-procedure Diagnosis:: Same Indications for Procedure:: This patient is a pleasant 55-year-old white female who is responded very well in the past 2 SI joint injections as well as trochanteric bursa injections. She has extreme point tenderness over the left SI joint as well as the left trochanteric bursa. We will inject both sites today. Procedure Details:: Procedure:Left trochanteric bursa injection under fluoroscopy We then moved to the left trochanteric bursa.~ C-arm fluoroscopy was used to view the left greater trochanter.~ The skin and subcutaneous tissues overlying the left greater trochanter were anesthetized using lidocaine, 1.5% and a 25- gauge needle.~ After this, a 22-gauge spinal needle was inserted and advanced until it contacted the left greater trochanter.~ Dye was injected and good spread was seen throughout the left trochanteric bursa. After this, approximately 5 mL of bupivacaine, 0.25% and Depo-Medrol, 40 mg was incrementally injected into the left trochanteric bursa.~ The patient tolerated the procedure well with no complications. Procedure: Left sacroiliac injection under fluoroscopy Informed consent was obtained and the risk and benefits of the procedure were explained to the patient.~ The patient was taken to the procedure room and noninvasive monitors were placed including noninvasive blood pressure cuff and pulse oximeter.~ The patient was placed prone on the procedure table.~ The~ left hip was cleansed using Betadine as a cleansing solution.~ C-arm fluorosocpy was used to view the left SI joint.~ The skin and subcutaneous tissues were anesthetized using Lidocaine 1.5% and a 25-gauge needle.~ After this, a 22-gauge spinal needle was inserted under fluoroscopic guidance into the inferior aspect of the left SI joint.~ Omnipaque dye was injected and a good spread was seen throughout the joint.~ After this, approximately 5 mL of bupivacaine 0.25% and Depo-Medrol 40 mg was incrementally injected into the sacroiliac joint.~ The patient tolerated the procedure well with no complications.~ The patient was observed in the Pain Clinic for a period of 30-45 minutes, then discharged home neurologically intact.~ Plan and Disposition:: Patient was reevaluated 15 minutes post procedure. She reports significant provement terms of her left SI joint as well as left bursa.
== END 2021-09-12 10:41 | disposition home or self-care (01) ==
LOC: SC.PAINP 10:16
PROVIDERS: PCP Emergency Medicine; Visit Provider Nurse Anesthetist, Certified Registered
DX: M46.1 Sacroiliitis, not elsewhere classified (principal); M70.62 Trochanteric bursitis, left hip; J44.9 Chronic obstructive pulmonary disease, unspecified; I25.10 Atherosclerotic heart disease of native coronary artery without angina pectoris; K21.9 Gastro-esophageal reflux disease without esophagitis; E78.5 Hyperlipidemia, unspecified; I10 Essential (primary) hypertension; F41.9 Anxiety disorder, unspecified; F32.A Depression, unspecified; M19.90 Unspecified osteoarthritis, unspecified site; Z72.0 Tobacco use
CPT/HCPCS: 20610; 27096; 77002; G0260; J1040

== ENCOUNTER → 2021-09-25 08:47 | Outpatient (POV) | payer MEDICAID, SELFPAY ==
[2021-09-25 09:14] VITALS: BP 115/84; PULSE 70; RESP 18; TEMP 36.8; O2SAT 100; BMI 27.9
--- NOTE | 2021-09-25 10:49 | HMH.PAINSOAP ---
[facility] Pain Management SOAP Note Subjective:: Patient is a pleasant 56-year-old female who presents today for a follow-up after a left SI injection and left greater trochanteric bursa injections on 09/12/2021. We have been managing this patient with injective therapy. Patient gets 2 to 3 months of relief after each injection. After her left SI and left greater trochanteric bursa injections, patient had 80 to 90% relief. Denies any issues after the injection. Today, she is complaining of pain around her left shoulder blade. We did discuss last time that we will most likely schedule her for trigger point injections around this area. She says this is worse with any shoulder movement. She takes gabapentin 800 mg 3 times a day that is prescribed by an outside clinic. [facility] #[id number] with an active morphine equivalent of 0. Review of Systems: General: No recent weight changes, no fever, no sleep disturbances Respiratory: No cough, no shortness of air, no recurring pulmonary infections Cardiovascular/peripheral vascular: No chest pain, no palpitations, no edema, no shortness of breath Gastrointestinal: No new onset incontinence, normal bowel movements reported Genitourinary: No new onset incontinence Musculoskeletal: Left hip pain, left shoulder pain Psychiatric: [Normal mood/affect] Neurological: [Denies weakness in extremities], [denies balance issues] Objective:: Physical Exam: General: Alert and oriented x3, no acute distress, pleasant and cooperative, [on room air] Lungs: Respirations even and unlabored, symmetrical chest expansion Eyes: PERRL Musculoskeletal: Increased range of motion of the left hip. Tender to palpation around the left trapezoid just underneath the left shoulder blades. Neurological: Speech clear, no gross sensory deficit Assessment:: Myofascial pain, left sacroiliitis, left greater trochanteric bursitis Plan:: Continues to have relief after her left sided SI injection and left greater trochanteric bursa injection. She is complaining of pain around her left shoulder blade. She is tender to palpation around the left trapezoid just underneath the left shoulder blade. We will schedule the patient for trigger point injections around the left trapezoid. Risks and benefits of the procedure have been explained to the patient. Patient would like to proceed with the procedure. Patient has been instructed to contact the clinic with any concerns before the next appointment. Dr. Sarah has reviewed this note and agrees with this plan of care. This note was dictated using voice recognition software and make contain errors or omissions. [facility] History Medical History: Reports:: Anxiety, Chronic Obstructive Pulmonary Disease (COPD), Coronary Artery Disease, Depression, Gastroesophageal Reflux Disease(GERD), Hyperlipidemia, Hypertension Denies:: Cancer, Diabetes Mellitus Type 1, Diabetes Mellitus Type 2, Internal Pacemaker, MRSA, Seizures *Have you ever received a pneumonia vaccine?: Yes *Have you received a flu vaccine this season?: Yes Other Medical History: Reports: Arthritis, Other. Denies: Blood Transfusion Reaction Laterality Cases: Bilateral: Carpal Tunnel Release Other Surgeries: Yes: Cardiac Catheterization, Colonoscopy, Plastic Surgery, Tubal Ligation, Other. No: Pacemaker Amputation: No Fractures: No - *Social History Smoking Status: Current every day smoker Tobacco Type: cigarettes # Packs/Day (cigarettes): 1 Alcohol Intake: never Substance Use Type: denies use *Occupational Status:: unemployed Housing: house Household Members: none *Travel in the last 8 weeks: None - Psychiatric History Pschychiatric History:: Reports:: Anxiety, Depression Family Hx:: No significant family history
== END ==
PROVIDERS: Visit Provider Student in an Organized Health Care Education/Training Program
DX: M79.18 Myalgia, other site (principal); M46.1 Sacroiliitis, not elsewhere classified; M70.62 Trochanteric bursitis, left hip
CPT/HCPCS: 99212; G0463

== ENCOUNTER 2021-10-02 10:03 | Outpatient (RCR) | payer MEDICAID, SELFPAY | END 2021-10-02 10:05 | disposition home or self-care (01) | LOC: OT 10:03 | PROVIDERS: PCP Emergency Medicine; Visit Provider Orthopaedic Surgery | DX: M25.512 Pain in left shoulder (principal) | CPT/HCPCS: 97010; 97014; 97165; 97530; G0283 ==

== ENCOUNTER 2021-10-10 10:33 | Day surgery (SDC) | payer MEDICAID, SELFPAY ==
[2021-10-10 10:46] VITALS: BP 125/92; PULSE 83; RESP 18; TEMP 36.8; O2SAT 97; BMI 27.9
--- NOTE | 2021-10-10 11:02 | HMH.PMPROC ---
- Procedure Date: 10/10/21 Time: 11:02 Anesthesiologist:: Jori Nguyen CRNA Complications:: None Pre-procedure Diagnosis:: Fascial pain left trapezius muscle. Post-procedure Diagnosis:: Same Indications for Procedure:: This patient is a pleasant 56-year-old female that presents to our injection clinic today for left trapezius muscle injection. Patient complains of pain around the left shoulder blade area. Procedure Details:: Details of the procedure were explained to the patient. The patient was placed in the sitting position. The area over the left shoulder was cleaned using chlorhexidine as a cleansing solution. Palpating the trapezius muscle 3 areas were identified as the painful areas. Using a 22-gauge inch and half needle each area was infused in a fanning fashion with a solution of 0.5% Marcaine +1% lidocaine and 40 mg of Depo-Medrol dispersed evenly over 3 locations. Patient tolerated procedure without difficulty. There are no complications. Plan and Disposition:: Patient was discharged without incident.
[2021-10-10 11:09] VITALS: BP 136/87; PULSE 72; RESP 20
[2021-10-10 11:14] VITALS: BP 119/87; PULSE 80; RESP 20; O2SAT 98
== END 2021-10-10 11:15 | disposition home or self-care (01) ==
LOC: SC.PAINP 10:33
PROVIDERS: PCP Emergency Medicine; Visit Provider Nurse Anesthetist, Certified Registered
DX: M79.12 Myalgia of auxiliary muscles, head and neck (principal); J44.9 Chronic obstructive pulmonary disease, unspecified; F41.9 Anxiety disorder, unspecified; I25.10 Atherosclerotic heart disease of native coronary artery without angina pectoris; F32.A Depression, unspecified; K21.9 Gastro-esophageal reflux disease without esophagitis; E78.5 Hyperlipidemia, unspecified; I10 Essential (primary) hypertension; M19.90 Unspecified osteoarthritis, unspecified site; Z72.0 Tobacco use
CPT/HCPCS: 20552; J1040

== ENCOUNTER → 2021-10-14 15:40 | Outpatient (CLI) | payer MEDICAID, SELFPAY ==
[2021-10-14 18:24] LABS: Coronavirus 19, PCR Not Detected (NotDetected); Influenza A, PCR Not Detected (NotDetected); Influenza B, PCR Not Detected (NotDetected)
== END ==
PROVIDERS: Visit Provider Nurse Practitioner Family
DX: Z11.52 Encounter for screening for COVID-19 (principal); J06.9 Acute upper respiratory infection, unspecified; J44.1 Chronic obstructive pulmonary disease with (acute) exacerbation
CPT/HCPCS: C9803; U0003; U0005

== ENCOUNTER → 2021-11-13 09:08 | Outpatient (POV) | payer MEDICAID, SELFPAY ==
[2021-11-13 10:31] VITALS: BP 131/84; PULSE 85; RESP 20; TEMP 36.9; O2SAT 97; BMI 29.5
--- NOTE | 2021-11-13 11:50 | HMH.PAINSOAP ---
[facility] Pain Management SOAP Note Subjective:: Patient is a pleasant 56-year-old female who presents today for follow-up. Weekly treating this patient for myofascial pain, sacroiliitis of the left side and left greater trochanteric bursitis. We have been managing this patient with injective therapy. She had a left SI injection and left greater trochanter bursa injections on 09/12/2021 that provided her 80 to 90% relief. Patient presents today for her 3-month follow-up. Today, patient states that she has been having worsening left hip pain. She is wanting to reschedule the injection. She was also being managed with Flexeril and tramadol and is wanting refills on these medications. We started her on meloxicam previously but she states that this medication is not helping her pain. She is not taking this medication anymore. She is also prescribed gabapentin 800 mg 3 times a day by Dr. Waggoner. She rates her pain today as 10 out of 10. [facility] [phone] with an active morphine equivalent of 0. She also had a recent trigger point injections around the left trapezius muscle. She is doing well after this injection. She has no other complaints in this area. Review of Systems: General: No recent weight changes, no fever, no sleep disturbances Respiratory: No cough, no shortness of air, no recurring pulmonary infections Cardiovascular/peripheral vascular: No chest pain, no palpitations, no edema, no shortness of breath Gastrointestinal: No new onset incontinence, normal bowel movements reported Genitourinary: No new onset incontinence Musculoskeletal: Left hip pain Psychiatric: [Normal mood/affect] Neurological: [Denies weakness in extremities], [denies balance issues] Objective:: Physical Exam: General: Alert and oriented x3, no acute distress, pleasant and cooperative Lungs: Respirations even and unlabored, symmetrical chest expansion Eyes: PERRL Musculoskeletal: Left SI is positive for MADDY, Marvin's, Ragley's, Gaenslen's, compression, and distraction. Tender to palpation around the left peritrochanteric bursa Neurological: Speech clear, no gross sensory deficit Assessment:: Sacroiliitis, greater trochanteric bursitis, myofascial pain Plan:: Patient has tried and failed conservative therapy such as oral medication, physical therapy, and home exercises for greater than 6 weeks. Patient has positive SI exam. We will schedule the patient for a left SI injection and left greater trochanteric bursa injection. Risks and benefits of the procedure have been explained to the patient. Patient would like to proceed with the procedure. We will continue the patient's Flexeril and tramadol. Will not refill the patient's meloxicam. Patient has been instructed to contact the clinic with any concerns before the next appointment. Dr. Sarah has reviewed this note and agrees with this plan of care. This note was dictated using voice recognition software and make contain errors or omissions. [facility] History Medical History: Reports:: Anxiety, Chronic Obstructive Pulmonary Disease (COPD), Coronary Artery Disease, Depression, Gastroesophageal Reflux Disease(GERD), Hyperlipidemia, Hypertension Denies:: Cancer, Diabetes Mellitus Type 1, Diabetes Mellitus Type 2, Internal Pacemaker, MRSA, Seizures *Have you ever received a pneumonia vaccine?: Yes *Have you received a flu vaccine this season?: Yes Other Medical History: Reports: Arthritis, Other. Denies: Blood Transfusion Reaction Laterality Cases: Bilateral: Carpal Tunnel Release Other Surgeries: Yes: Cardiac Catheterization, Colonoscopy, Plastic Surgery, Tubal Ligation, Other. No: Pacemaker Amputation: No Fractures: No - *Social History Smoking Status: Current every day smoker Tobacco Type: cigarettes # Packs/Day (cigarettes): 1 Alcohol Intake: never Substance Use Type: denies use *Occupational Status:: other Housing: house Household Members: none *Travel in the last 8 weeks: None - Psychiatric History
== END ==
PROVIDERS: Visit Provider Student in an Organized Health Care Education/Training Program
DX: M46.1 Sacroiliitis, not elsewhere classified (principal); M70.62 Trochanteric bursitis, left hip; M79.18 Myalgia, other site
CPT/HCPCS: 99212; G0463

== ENCOUNTER 2021-11-28 12:10 | Day surgery (SDC) | payer MEDICAID, SELFPAY ==
[2021-11-28 13:05] VITALS: BP 125/72; PULSE 89; RESP 18; TEMP 36.9; O2SAT 95; BMI 28.5
[2021-11-28 13:13] VITALS: BP 125/62; PULSE 103; RESP 20; O2SAT 95
[2021-11-28 13:23] VITALS: BP 115/69; PULSE 97; RESP 20; O2SAT 93
--- NOTE | 2021-11-28 13:24 | HMH.PMPROC ---
- Procedure Date: 11/28/21 Time: 13:24 Anesthesiologist:: Torsten Sarah MD Complications:: None Pre-procedure Diagnosis:: Sacroiliitis and trochanteric bursitis Post-procedure Diagnosis:: Same Indications for Procedure:: This patient is a pleasant 56-year-old white female who we are treating for left-sided hip pain. She is tender over the left trochanteric bursa and left SI joint. She does have a positive Hoa's test on the left side. She has positive Trosper's test on left side. She is positive SI joint compression test on left side. And a positive distraction test on left side. We will plan a left SI joint injection left trochanteric bursa injection today under fluoroscopy to see if this helps with her pain symptoms. Procedure Details:: Left SI joint injection under fluoroscopy Informed consent was obtained and the risks and benefits of the procedure was explained to the patient. Patient was taken to the procedure room. Patient was placed prone on the procedure table. The left hip was prepped using ChloraPrep. The skin and subcutaneous tissues were anesthetized using lidocaine. I placed a 22-gauge spinal needle into the inferior aspect of the left SI joint. Needle placement was confirmed with dye. After this we injected 5 mL bupivacaine 0.25% and Depo-Medrol 40 mg into the left SI joint. The patient tolerated the procedure well with no complication. Left trochanteric bursa injection under fluoroscopy informed consent was obtained and the risk and benefits of the procedure was explained to the patient. The patient was taken to procedure room and placed prone on the procedure table. The left hip was prepped using ChloraPrep. The skin and subcutaneous tissues were anesthetized using lidocaine. I placed a 22-gauge spinal needle under fluoroscopic guidance and advanced until it contacted the left greater trochanter. Needle placement was confirmed with dye. After this we injected 5 mL bupivacaine 0.25% and Depo-Medrol 40 mg. Patient tolerated the procedure well with no complications. Plan and Disposition:: We will follow-up with her in 2 weeks. Will reevaluate symptoms at that time.
[2021-11-28 13:30] VITALS: BP 151/73; PULSE 89; RESP 18; O2SAT 98
== END 2021-11-28 13:30 | disposition home or self-care (01) ==
LOC: SC.PAINP 12:11
PROVIDERS: PCP Emergency Medicine; Visit Provider Anesthesiology
DX: M46.1 Sacroiliitis, not elsewhere classified (principal); M70.62 Trochanteric bursitis, left hip
CPT/HCPCS: 27096; G0260; J1040; Q9966

== ENCOUNTER → 2021-12-02 12:56 | Outpatient (CLI) | payer MEDICAID, SELFPAY ==
[2021-12-02 13:55] VITALS: PULSE 64; PULSE 70
--- NOTE | 2021-12-02 14:37 | CT_ITS ---
FINAL REPORT CLINICAL HISTORY: lung cancer screening smoker 1ppd x 15 years copd family hx of lung cancer COMPARISON: March 03, 2021 FINDINGS: Low-Dose Chest CT CTDI vol (mGy): 2.90 DLP (mGy-cm): 98.47 Axial images were obtained from the lung apex to the mid abdomen by computed tomography. Low-dose protocol was utilized. FINDINGS: CHEST: There is no axillary adenopathy. There is no hilar adenopathy. There is a precarinal lymph node measuring 19 mm and was previously 23 mm. There are several other mildly enlarged mediastinal lymph nodes. The heart is proper size. There is no pericardial or pleural effusion. Limited images of the upper abdomen are unremarkable. Lung window images demonstrate moderate changes of emphysema and mild pulmonary scarring. There is a 4 mm right upper lobe nodule on image 41 which is stable. There is a calcified granuloma in the left lower lobe. IMPRESSION: Lung RADS category 2. Recommend 12 month follow-up low-dose chest CT. Reviewed, Interpreted and Dictated by Sundeep Kim III, MD Transcribed by Gisela Anglin Authenticated and [facility]
== END ==
PROVIDERS: PCP Emergency Medicine; Visit Provider Internal Medicine Pulmonary Disease
DX: Z87.891 Personal history of nicotine dependence (principal); Z12.2 Encounter for screening for malignant neoplasm of respiratory organs; R06.02 Shortness of breath
CPT/HCPCS: 71271; 94060; 94618; 94640; 94727; 94729

== ENCOUNTER → 2022-01-08 11:21 | Outpatient (POV) | payer MEDICAID, SELFPAY ==
[2022-01-08 11:32] VITALS: BP 150/88; PULSE 85; RESP 20; BMI 29.5
--- NOTE | 2022-01-08 11:55 | HMH.PAINSOAP ---
[facility] Pain Management SOAP Note Subjective:: Patient is a pleasant 56-year-old female who presents today for follow-up from left SI and left trochanteric bursa injection on 11/28/2021. We are currently treating the patient for myofascial pain, sacroiliitis and greater trochanteric bursitis. Patient states that she has had 80% improvement from this injection and states it is still continuing to help. Today she rates her pain a 8 out of 10. She states the pain is in her right shoulder that radiates down her arm to her fingers and describes it as a aching, throbbing, numbness, tingling sensation that is worse with activity. She denies any new trauma or injury to the site. She also states that she is starting to feel like her right SI and hip need to be injected again. Patient states that this is a chronic issue. She has had injective therapy in the past with significant improvement of 80 to 90% relief. Patient is interested in an injection on her right shoulder today. She states that she has had injections on her left shoulder that provided significant improvement. Patient states that she has had a carpal tunnel release and cubital release on her right side in the past. Patient is currently managing her pain with gabapentin 600 mg 3 times a day and [place] 5 mg twice daily these are both written by Dr. Waggoner. Patient denies any side effects from these medications. She states these medications do adequately manage her pain. Her Maurice is [phone]. It has been reviewed and appropriate. Review of Systems: General: No recent weight changes, no fever, no sleep disturbances Respiratory: No cough, no shortness of air, no recurring pulmonary infections Cardiovascular/peripheral vascular: No chest pain, no palpitations, no edema, no shortness of breath Gastrointestinal: No new onset incontinence, normal bowel movements reported Genitourinary: No new onset incontinence Musculoskeletal: Right shoulder pain, low back pain, right hip pain Psychiatric: [Normal mood/affect] Neurological: [Denies weakness in extremities], [denies balance issues] Objective:: Physical Exam: General: Alert and oriented x3, no acute distress, pleasant and cooperative Lungs: Respirations even and unlabored, symmetrical chest expansion Eyes: PERRL Musculoskeletal: Flexion and extension of right shoulder, lumbar [spine] somewhat guarded secondary to pain, [antalgic gait noted]. Point tenderness noted along her right cervical paraspinous and right trapezius. Point tenderness along right lumbar spine/SI and right hip. Positive right Hoa's Marvin's, Gaenslen's, compression and distraction test Neurological: Speech clear, no gross sensory deficit Assessment:: Sacroiliitis, greater trochanteric bursitis, myofascial pain, right shoulder pain Plan:: Patient is having worsening right shoulder pain at today's visit. Patient has positive point tenderness along her right cervical paraspinous and right trapezius at today's exam. She also had a positive right Marvin's, Hoa's, Gaenslen's, compression and distraction exam. Patient has not had right shoulder or cervical imaging. I have discussed with her regarding ordering a MRI of her right shoulder and a cervical MRI due to her symptoms radiating down her right arm. I have explained to the patient I would like to have imaging first before proceeding with an injection. I have also discussed with the patient regarding consulting orthopedics if necessary following results. I will order these images today and we will follow-up with her in office after. I will prescribe the patient a compounding cream at today's visit and also do a oral steroid of prednisone 20 mg twice daily for 5 days. I have discussed with the patient about doing her right SI at a later date after addressing her shoulder pain. Patient will return to clinic following MRI for reevaluation of symptoms and results. Patient has been instructed to contact the clinic with any conc
== END ==
PROVIDERS: PCP Emergency Medicine; Visit Provider Nurse Practitioner Family
DX: M46.1 Sacroiliitis, not elsewhere classified (principal); M70.60 Trochanteric bursitis, unspecified hip; M79.18 Myalgia, other site; M25.511 Pain in right shoulder
CPT/HCPCS: 99212; G0463

== ENCOUNTER → 2022-01-29 10:59 | Outpatient (POV) | payer MEDICAID, SELFPAY ==
[2022-01-29 11:47] VITALS: BP 137/95; PULSE 89; RESP 18; TEMP 37.1; O2SAT 96; BMI 29.5
--- NOTE | 2022-01-29 12:10 | EXP.PAIN.SOA ---
[facility] Pain Management SOAP Note Subjective:: Patient is a pleasant 56-year-old female who presents today for follow-up. We are currently treating the patient for myofascial pain of her cervical paraspinous and trapezius, sacroiliitis and greater trochanteric bursitis. Patient rates her pain today an 8 out of 10. She states her pain is primarily in her neck to her right shoulder that radiates down her right arm to her fingers. She describes this as a aching, throbbing, numb/tingling sensation that is worse with activity. Patient was recently denied by insurance for a MRI of her cervical spine. Patient denies any new trauma or injury to the site. Patient states this has been a chronic issue that she is dealt with for years. We have done injective therapy in the past that has provided some relief of her symptoms. She is currently managed with gabapentin 600 mg 3 times a day and [place] 5 mg twice daily both written by Dr. Waggoner. Patient denies any side effects from these medications. She states these medications are adequately managing her pain. We have prescribed the patient compounding cream however she states there is minimal improvement of her symptoms. Patient has recently been to physical therapy however this aggravated her pain symptoms. She has continued to do home exercising and stretching for longer than 6 weeks however there has been no improvement in her symptoms. Patient has tried and failed conservative therapy such as oral medications, topical medications, injective therapy, physical therapy, at home exercising and stretches for more than 6 weeks. Patient does have a history of carpal tunnel release and cubital release on her right side. Her Maurice is [id number]. Review of Systems: General: No recent weight changes, no fever, no sleep disturbances Respiratory: No cough, no shortness of air, no recurring pulmonary infections Cardiovascular/peripheral vascular: No chest pain, no palpitations, no edema, no shortness of breath Gastrointestinal: No new onset incontinence, normal bowel movements reported Genitourinary: No new onset incontinence Musculoskeletal: Neck pain, right shoulder pain, right arm pain Psychiatric: [Normal mood/affect] Neurological: [Denies weakness in extremities], [denies balance issues] Objective:: Physical Exam: General: Alert and oriented x3, no acute distress, pleasant and cooperative Lungs: Respirations even and unlabored, symmetrical chest expansion Eyes: PERRL Musculoskeletal: Flexion and extension of cervical [spine] somewhat guarded secondary to pain, [antalgic gait noted]. Point tenderness on right cervical paraspinous and right trapezius muscles. Right-sided upper extremity weakness Neurological: Speech clear, no gross sensory deficit Assessment:: Degenerative disc disease of lumbar spine, myofascial pain of cervical paraspinous and trapezius muscles, sacroiliitis, greater trochanteric bursitis, neck pain Plan:: Patient has significant pain in her neck that radiates to her right shoulder down her right arm. Patient had limited range of motion of her cervical spine during today's visit. Patient also had point tenderness along right cervical paraspinous and right trapezius muscles as well as right-sided upper extremity weakness. We have no imaging of her cervical spine or her right shoulder. I have discussed with the patient before proceeding with injections I want to verify imaging as a precaution. Patient has tried and failed conservative therapy such as oral medications, topical medications, injective therapy, physical therapy, at home stretching and exercises for more than 6 weeks. I will reorder the patient's cervical MRI and right shoulder MRI at today's visit. We will follow-up with the patient following this imaging per insurance approval. I will also order the patient ibuprofen 800 mg and provide a month supply of this medication. Patient denies any kidney issues or cardiac history. Patient has been inst
== END | disposition home or self-care (01) ==
PROVIDERS: PCP Emergency Medicine; Visit Provider Nurse Practitioner Family
DX: M51.36 Other intervertebral disc degeneration, lumbar region (principal); M79.18 Myalgia, other site; M70.60 Trochanteric bursitis, unspecified hip; M54.2 Cervicalgia
CPT/HCPCS: 99212; G0463

== ENCOUNTER → 2022-02-26 09:11 | Outpatient (CLI) | payer MEDICAID, SELFPAY ==
--- NOTE | 2022-02-26 09:17 | MR_ITS ---
FINAL REPORT TECHNIQUE: Multiplanar MR without contrast CLINICAL HISTORY: NECK AND RIGHT SHOULDER PAIN right shoulder pain w. pain radiationg down right arm bilateral arm weakness pain when raising arm above head FINDINGS: Marrow signal: Marrow edema in the distal clavicle and acromion. Remaining marrow signal unremarkable. Glenohumeral joint: Physiologic effusion. No significant degenerative changes. AC joint: Severe Lucy in the AC joint and joint capsule may represent severe AC arthropathy. If there is a history of trauma a grade 1 AC joint injury would have a similar appearance. Rotator cuff: No evidence of tear Labrum: Normal morphology without tear Biceps tendon: Intra-articular long head biceps tendon intact. IMPRESSION: Severe AC joint edema in that may be due to arthropathy or in the setting of trauma grade 1 injury. Reviewed, Interpreted and Dictated by Uma Mayorga MD Transcribed by Nino Root Authenticated and [facility]
--- NOTE | 2022-02-26 09:17 | MR_ITS ---
FINAL REPORT TECHNIQUE: Multiplanar MR without gadolinium enhancement CLINICAL HISTORY: NECK AND RIGHT SHOULDER PAIN right shoulder pain w. pain radiationg down right arm bilateral arm weakness pain when raising arm above head FINDINGS: Limited images of the posterior fossa are unremarkable. There is reversal of normal cervical lordosis with moderate spondylosis. Alignment is normal. Cervical spinal cord shows normal signal and contour. C2-3: Unremarkable. C3-4: A tiny right paracentral disc protrusion is present. C4-5: A mild annular disc bulge is present with facet arthropathy. C5-6: A moderate annular disc bulge covered by osteophyte is present. There is borderline central canal stenosis with mild bilateral neural foraminal narrowing. C6-7: There is a minimal annular disc bulge with mild bilateral neural foraminal narrowing. C7-T1: Unremarkable. IMPRESSION: Spondylosis and degenerative changes most pronounced at C5-6. Reviewed, Interpreted and Dictated by Uma Mayorga MD Transcribed by Gisela Anglin Authenticated and [facility]
== END ==
PROVIDERS: PCP Emergency Medicine; Visit Provider Nurse Practitioner Family
DX: M54.2 Cervicalgia (principal); M25.511 Pain in right shoulder
CPT/HCPCS: 72141; 73221; 76376

== ENCOUNTER → 2022-03-05 09:13 | Outpatient (POV) | payer MEDICAID, SELFPAY ==
--- NOTE | 2022-03-05 09:22 | EXP.PAIN.SOA ---
[facility] Pain Management SOAP Note Subjective:: Patient is a pleasant 56-year-old female who presents today for follow-up of MRI imaging of her cervical spine and right shoulder. We are currently treating the patient for degenerative disc disease of lumbar spine, myofascial pain of cervical paraspinous and trapezius muscles, sacroiliitis, greater trochanteric bursitis, neck pain. Today she rates her pain a 10 out of 10. She states the pain is primarily in her right shoulder along with low back pain on the left side that radiates into her left hip and left leg. Patient denies any new trauma or injury. She denies any change in location or type of pain she experiences. Patient describes this as a aching, throbbing sensation that is worse with increased activity. Patient has had injective therapy in the past that is provided significant improvement of her symptoms. Patient would like to schedule a injection at today's visit. Patient does take ibuprofen 800 mg to help with this pain. She is also managed with gabapentin 800 mg 3 times a day and [place] 7.5 mg twice a day by Dr. Waggoner's office. Patient denies any side effects from this medication. She states these medications do adequately help manage her pain. Her Maurice is [phone]. Review of Systems: General: No recent weight changes, no fever, no sleep disturbances Respiratory: No cough, no shortness of air, no recurring pulmonary infections Cardiovascular/peripheral vascular: No chest pain, no palpitations, no edema, no shortness of breath Gastrointestinal: No new onset incontinence, normal bowel movements reported Genitourinary: No new onset incontinence Musculoskeletal: Right shoulder pain, left low back, hip and leg pain Psychiatric: [Normal mood/affect] Neurological: [Denies weakness in extremities], [denies balance issues] Objective:: Physical Exam: General: Alert and oriented x3, no acute distress, pleasant and cooperative Lungs: Respirations even and unlabored, symmetrical chest expansion Eyes: PERRL Musculoskeletal: Flexion and extension of cervical, lumbar [spine] somewhat guarded secondary to pain, [antalgic gait noted]. Extreme point tenderness along left SI and positive left Hoa's, Marvin's, Gaenslen's, compression and distraction exam Neurological: Speech clear, no gross sensory deficit Assessment:: Degenerative disc disease of cervical and lumbar spine with cervical and lumbar radiculopathy symptoms, sacroiliitis, greater trochanteric bursitis, myofascial pain of cervical paraspinous and trapezius muscles Plan:: Patient is experiencing significant pain in her low back on the left side that radiates into her left hip and left leg. Patient did have limited range of motion of her lumbar spine during today's visit as well as extreme point tenderness along her left SI and left bursa and positive left Hoa's, Marvin's, Gaenslen's, compression and distraction exam. I have discussed with the patient regarding having repeat left SI and left bursa injections. Risk and benefits have been discussed with the patient. She would like to proceed forward with this option. Patient's right shoulder MRI did show severe AC joint edema that may be due to arthropathy or the setting of trauma grade 1 injury. I have discussed with the patient that I will send her for a Ortho referral to [facility] at the [place] location for her right shoulder pain. I have also discussed with the patient that she may benefit from a cervical epidural based off her symptoms and her imaging that showed spondylosis and degenerative disc disease most pronounced at C5-C6. Risk and benefits of a cervical epidural were discussed with the patient. At this time the patient is experiencing more pain along her left low back that radiates therefore we will look into a cervical epidural in the future if her neck pain persist. We will schedule the patient today for a left SI and left bursa injection. [facility]
[2022-03-05 09:29] VITALS: BP 148/99; PULSE 83; RESP 18; TEMP 36.8; O2SAT 97; BMI 29.3
== END | disposition home or self-care (01) ==
PROVIDERS: Visit Provider Nurse Practitioner Family
DX: M51.16 Intervertebral disc disorders with radiculopathy, lumbar region (principal); M50.122 Cervical disc disorder at C5-C6 level with radiculopathy; M46.1 Sacroiliitis, not elsewhere classified; M79.18 Myalgia, other site; M70.60 Trochanteric bursitis, unspecified hip
CPT/HCPCS: 99212; G0463

== ENCOUNTER → 2022-03-06 11:26 | Outpatient (CLI) | payer MEDICAID, SELFPAY ==
[2022-03-06 12:40] LABS: Basophils # 0.1 K/mm3 (0-0.2); Basophils % 0.6 % (0.1-2.0); Eosinophils # 0.2 K/mm3 (0.0-0.4); Eosinophils % 2.1 % (0.1-12.0); Hematocrit 43.3 % (37.0-47.0); Hemoglobin 13.3 g/dL (12.2-16.2); Lymphocytes # 2.6 K/mm3 (0.7-4.5); Lymphocytes % 31.6 % (10-50); Mean Corpuscular HGB Conc 30.6 g/dL (31.8-35.4); Mean Corpuscular Hemoglobin 30.6 pg (27.0-31.2); Mean Corpuscular Volume 100.2 fl (81-99); Mean Platelet Volume 7.3 fl (7.4-10.4); Monocytes # 0.8 K/mm3 (0.1-1.0); Monocytes % 10.1 % (1.7-9.3); Neutrophils # 4.6 K/mm3 (1.8-7.8); Neutrophils % 55.5 % (37.0-80.0); Platelet Count 438 K/mm3 (142-424); Red Blood Count 4.33 M/mm3 (4.20-5.40); Red Cell Distribution Width 12.9 % (11.5-17.5); White Blood Count 8.3 K/mm3 (4.8-10.8)
[2022-03-06 12:58] LABS: Alanine Aminotransferase 17 U/L (12-78); Albumin Level 3.8 g/dl (3.5-5.0); Alkaline Phosphatase 63 U/L (38-126); Aspartate Amino Transferase 25 U/L (14-36); Bilirubin,Total < 0.1 mg/dl (0.2-1.3); Chol/HDL Ratio 3.2 (1-3.5); Cholesterol 120 mg/dl (140-200); HDL Cholesterol 38 mg/dl (40-60); Total Protein,Serum 6.3 g/dl (6.3-8.2); Triglycerides 85 mg/dl (30-150); VLDL Cholesterol 17 mg/dL (0-40)
[2022-03-06 12:59] LABS: Bilirubin,Indirect 0.1 mg/dL (0.0-0.9)
[2022-03-06 13:09] LABS: Direct LDL Cholesterol 60.07 mg/dL (100-129)
[2022-03-13 19:09] LABS: D001-IgE D pteronyssinus <0.10 kU/L (Class 0); D002-IgE D farinae <0.10 kU/L (Class 0); E001-IgE Cat Dander <0.10 kU/L (Class 0); E005-IgE Dog Dander <0.10 kU/L (Class 0); E072-IgE Mouse Urine <0.10 kU/L (Class 0); G002-IgE Bermuda Grass <0.10 kU/L (Class 0); G006-IgE Timothy Grass <0.10 kU/L (Class 0); I006-IgE Cockroach, German <0.10 kU/L (Class 0); Immunoglobulin E, Total 43 IU/mL (6-495); M001-IgE Penicillium chrysogen <0.10 kU/L (Class 0); M002-IgE Cladosporium herbarum <0.10 kU/L (Class 0); M003-IgE Aspergillus fumigatus <0.10 kU/L (Class 0); M006-IgE Alternaria alternata <0.10 kU/L (Class 0); T001-IgE Maple/Box Elder <0.10 kU/L (Class 0); T003-IgE Common Silver Birch <0.10 kU/L (Class 0); T006-IgE Cedar, Mountain <0.10 kU/L (Class 0); T007-IgE Oak, White <0.10 kU/L (Class 0); T008-IgE Elm, American <0.10 kU/L (Class 0); T010-IgE Walnut <0.10 kU/L (Class 0); T011-IgE Maple Leaf Sycamore <0.10 kU/L (Class 0); T014-IgE Cottonwood <0.10 kU/L (Class 0); T015-IgE Ash, White <0.10 kU/L (Class 0); T022-IgE Pecan, Hickory <0.10 kU/L (Class 0); T070-IgE White Mulberry <0.10 kU/L (Class 0); W001-IgE Ragweed, Short <0.10 kU/L (Class 0); W011-IgE Thistle, Russian <0.10 kU/L (Class 0); W014-IgE Pigweed, Common <0.10 kU/L (Class 0); W018-IgE Sheep Sorrel <0.10 kU/L (Class 0)
== END ==
PROVIDERS: Internal Medicine Pulmonary Disease; PCP Emergency Medicine; Visit Provider Internal Medicine Cardiovascular Disease
DX: R06.00 Dyspnea, unspecified (principal); R42 Dizziness and giddiness; I65.23 Occlusion and stenosis of bilateral carotid arteries; E78.2 Mixed hyperlipidemia; J45.909 Unspecified asthma, uncomplicated; Z72.0 Tobacco use
CPT/HCPCS: 36415; 80061; 80076; 82785; 85025; 86003

== ENCOUNTER 2022-03-17 09:09 | Day surgery (SDC) | payer MEDICAID, SELFPAY ==
[2022-03-17 09:21] VITALS: BP 128/78; PULSE 75; RESP 18; O2SAT 98
[2022-03-17 09:26] VITALS: BP 119/80; PULSE 75; RESP 18; TEMP 36.7; O2SAT 96; BMI 29.5
[2022-03-17 09:37] VITALS: BP 122/78; PULSE 73; RESP 20; O2SAT 95
--- NOTE | 2022-03-17 09:38 | EXP.PAIN.PRO ---
Procedure Date: 03/17/22 Time: 09:35 Anesthesiologist:: Jori Nguyen CRNA Complications:: None Pre-procedure Diagnosis:: Degenerative disc disease of cervical and lumbar spine with cervical and lumbar radiculopathy symptoms, sacroiliitis, greater trochanteric bursitis, myofascial pain of the cervical paraspinous and trapezius muscles Post-procedure Diagnosis:: Same Indications for Procedure:: Patient is a pleasant 56-year-old female who presents today for left SI and left bursa injection. We are currently treating the patient for degenerative disc disease of cervical and lumbar spine with cervical lumbar radiculopathy symptoms, sacroiliitis, greater trochanteric bursitis, myofascial pain of cervical paraspinous and trapezius muscles. Today the patient rates her pain a 7 out of 10 and states the pain is primarily on her left low back and left hip. Patient is managed with gabapentin 800 mg 3 times a day and ibuprofen 800 mg as needed. Patient also takes [place] 7.5 mg twice a day by Dr. Waggoner's office. Patient denies any side effects from these medications. She states these medications do adequately help manage her pain. We have done injective therapy in the past that is provided significant improvement of her symptoms. We will proceed forward with these injections at today's visit. Procedure Details:: Informed consent was obtained and the risk and benefits of the procedure were explained to the patient. the patient was taken to the procedure room where noninvasive monitors were placed on the patient including a noninvasive blood pressure cuff and pulse oximeter. The patient was placed on the prone position on the procedure table. The lower back/buttocks was cleansed with chlorhexidine as a cleansing solution. The C arm fluoroscopy was used to view the left SI joint. The skin and subcutaneous tissues were anesthetized using lidocaine 1% and a 25-gauge needle. After this a 22-gauge spinal was inserted needle into the inferior aspect of the left sacroiliac joint. Approximately 5 mL of bupivacaine 0.25% and Depo-Medrol 40 mg was incrementally injected into the left sacroiliac joint. Using the C arm fluoroscopy the left greater trochanteric bursa was visualized. The skin and subcutaneous tissues were anesthetized using lidocaine 1% and a 25-gauge needle. After this a 22-gauge spinal needle was inserted and approximately 5 mL of bupivacaine 0.25% and Depo-Medrol 40 mg was incrementally injected into the left greater trochanteric bursa. Patient tolerated the procedure well with no complications. Plan and Disposition:: The patient was monitored for short period of time in clinic following the procedure and was discharged neurologically intact. We will follow-up with the patient in 2 weeks for reevaluation of symptoms. Patient has been instructed to contact the clinic with any questions or concerns before the next appointment date. Dr. Sarah is read this note and agrees with this plan of care. This note was dictated using voice recognition software and may contain errors or omissions.
== END 2022-03-17 09:38 | disposition home or self-care (01) ==
LOC: SC.PAINP 09:11
PROVIDERS: PCP Emergency Medicine; Visit Provider Nurse Anesthetist, Certified Registered
DX: M50.10 Cervical disc disorder with radiculopathy, unspecified cervical region (principal); M51.16 Intervertebral disc disorders with radiculopathy, lumbar region; M70.60 Trochanteric bursitis, unspecified hip; M46.1 Sacroiliitis, not elsewhere classified; M79.18 Myalgia, other site; Z72.0 Tobacco use
CPT/HCPCS: 20610; 27096; G0260; J1030

== ENCOUNTER → 2022-03-25 14:29 | Outpatient (CLI) | payer MEDICAID, SELFPAY ==
[2022-03-25 19:06] LABS: Amphetamine/Metha Screen,Urine Negative ng/ml (<1000); Barbiturates Screen,Urine Negative ng/ml (<200)
[2022-03-25 19:07] LABS: Benzodiazepines Screen,Urine Negative ng/ml (<200)
[2022-03-25 19:08] LABS: Cannabinoid Screen,Urine Negative ng/ml (<50); Cocaine Screen,Urine Negative ng/ml (<300)
[2022-03-25 19:09] LABS: Methadone Screen,Urine Negative ng/ml (<300)
[2022-03-25 19:10] LABS: Opiate Screen,Urine Positive ng/ml (<300); Phencyclidine Screen,Urine Negative ng/ml (<25)
== END ==
PROVIDERS: PCP Emergency Medicine; Visit Provider Emergency Medicine
DX: Z79.899 Other long term (current) drug therapy (principal)
CPT/HCPCS: 80305

== ENCOUNTER → 2022-04-13 10:23 | Outpatient (POV) | payer MEDICAID, SELFPAY ==
[2022-04-13 11:02] VITALS: BP 120/70; PULSE 77; RESP 18; O2SAT 96; BMI 29.5
--- NOTE | 2022-04-13 12:38 | A.OFFVIS_ITS ---
[facility] Pain Management SOAP Note Subjective:: Patient is a pleasant 56-year-old female who presents today for follow-up of left SI and left bursa injection on 03/17/2022. We are currently treating the patient for degenerative disc disease of cervical and lumbar spine with cervical and lumbar radiculopathy symptoms, myofascial pain of cervical paraspinous and trapezius muscles, sacroiliitis, greater trochanteric bursitis, neck pain. Patient states that she has had 100% improvement following these injections and feels like they are still continuing to help. Today she rates her pain a 10 out of 10 and states her pain is in her right shoulder and right arm. Patient denies any new trauma or injury. Patient states she previously had a right elbow surgery approximately [address] Bellamy and was doing well up until the last 2 days. Patient states she did previously have to reschedule her last appointment with Dr. Bellamy. Patient is currently managed with gabapentin 800 mg 3 times a day and [place] 7.5 mg 3 times a day from Dr. Waggoner's office. Patient denies any side effects from this medication. She states these me dications do help her pain symptoms. Her Maurice is [id number]. It has been reviewed and appropriate. Review of Systems: General: No recent weight changes, no fever, no sleep disturbances Respiratory: No cough, no shortness of air, no recurring pulmonary infections Cardiovascular/peripheral vascular: No chest pain, no palpitations, no edema, no shortness of breath Gastrointestinal: No new onset incontinence, normal bowel movements reported Genitourinary: No new onset incontinence Musculoskeletal: Right shoulder pain, right arm pain Psychiatric: [Normal mood/affect] Neurological: [Denies weakness in extremities], [denies balance issues] Objective:: Physical Exam: General: Alert and oriented x3, no acute distress, pleasant and cooperative Lungs: Respirations even and unlabored, symmetrical chest expansion Eyes: PERRL Musculoskeletal: Flexion and extension of right shoulder somewhat guarded secondary to pain, [antalgic gait noted] Neurological: Speech clear, no gross sensory deficit Assessment:: Degenerative disc disease of cervical and lumbar spine with cervical and lumbar radiculopathy symptoms, myofascial pain of cervical paraspinous and trapezius muscles, sacroiliitis, greater trochanteric bursitis, neck pain, right shoulder pain Plan:: Patient is experienced significant pain in her right shoulder and arm and had limited range of motion during today's visit. I have counseled the patient to contact Dr. Pretty office for follow-up. Patient was given a printout of her previous MRI to take to this visit. We will follow-up with the patient in 1 month. Patient will return to clinic in 1 month for reevaluation of symptoms a nd follow-up. Patient has been instructed to contact the clinic with any concerns before the next appointment. Dr. Sarah has reviewed this note and agrees with this plan of care. This note was dictated using voice recognition software and make contain errors or omissions. PFSH PFSH Surgical History History of facial surgery History of surgery on upper extremity Family History Other No significant family history Social History Smoking Status: Current every day smoker tobacco type: cigarettes packs per day: 1 alcohol intake: never substance use type: denies use current occupational status: disabled Travel in the last 8 weeks: None household members: none housing: house c
== END ==
PROVIDERS: PCP Emergency Medicine; Visit Provider Nurse Practitioner Family
DX: M51.16 Intervertebral disc disorders with radiculopathy, lumbar region (principal); M50.10 Cervical disc disorder with radiculopathy, unspecified cervical region; M79.18 Myalgia, other site; M46.1 Sacroiliitis, not elsewhere classified; Z72.0 Tobacco use
CPT/HCPCS: 99212; G0463

== ENCOUNTER → 2022-06-11 11:01 | Outpatient (CLI) | payer BC, SELFPAY ==
--- NOTE | 2022-06-11 11:30 | XR_ITS ---
FINAL REPORT CLINICAL HISTORY: shortness of breath, cough smoker X 20 years COMPARISON: 02/02/2021 FINDINGS: 2 views of the chest were obtained . The heart is normal in size. The mediastinum is within normal limits. The lungs are clear. There is no pneumothorax. Osseous structures demonstrate chronic left posterior rib fractures. IMPRESSION: No acute cardiopulmonary process. Reviewed, Interpreted and Dictated by Sundeep Kim III, MD Transcribed by Migdalia Arreaga Authenticated and . [facility]
[2022-06-11 12:02] LABS: Basophils # 0.1 K/mm3 (0-0.2); Eosinophils # 0.2 K/mm3 (0.0-0.4); Eosinophils % 1.9 % (0.1-12.0); Hematocrit 44.9 % (37.0-47.0); Hemoglobin 13.6 g/dL (12.2-16.2); Lymphocytes # 2.4 K/mm3 (0.7-4.5); Lymphocytes % 24.6 % (10-50); Mean Corpuscular HGB Conc 30.3 g/dL (31.8-35.4); Mean Corpuscular Hemoglobin 30.8 pg (27.0-31.2); Mean Corpuscular Volume 101.6 fl (81-99); Mean Platelet Volume 7.6 fl (7.4-10.4); Monocytes # 0.7 K/mm3 (0.1-1.0); Monocytes % 7.6 % (1.7-9.3); Neutrophils # 6.2 K/mm3 (1.8-7.8); Neutrophils % 64.9 % (37.0-80.0); Platelet Count 578 K/mm3 (142-424); Red Blood Count 4.42 M/mm3 (4.20-5.40); Red Cell Distribution Width 14.5 % (11.5-17.5); White Blood Count 9.6 K/mm3 (4.8-10.8)
[2022-06-11 12:46] LABS: Alanine Aminotransferase 18 U/L (12-78); Albumin Level 4.1 g/dl (3.5-5.0); Albumin/Globulin Ratio 1.7 (1.1-1.8); Alkaline Phosphatase 53 U/L (38-126); Anion Gap 11.3 mEq/L (5-15); Aspartate Amino Transferase 24 U/L (14-36); Bilirubin,Total 0.3 mg/dl (0.2-1.3); Blood Urea Nitrogen 10 mg/dl (7-17); Calcium 9.3 mg/dl (8.4-10.2); Carbon Dioxide 26 mmol/L (22.0-30.0); Chloride 105 mmol/L (98-107); Estimated Glomerular Filt Rate 87 ml/min (>60); GFR (African American) 105 ML/MIN (>60); Globulin 2.4 g/dL (1.3-3.2); Glucose 95 mg/dl (74-100); Potassium 4.3 mmoL/L (3.5-5.1); Sodium 138 mmol/L (136-145); Total Protein,Serum 6.5 g/dl (6.3-8.2); Uric Acid 4.2 mg/dl (2.5-6.2)
[2022-06-11 13:01] LABS: Erythrocyte Sedimentation Rate 21 mm/hr (0-30)
[2022-06-12 11:17] LABS: Rapid Plasma Reagin Ab Titer Non Reactive (NonRea<1:1)
[2022-06-12 16:33] LABS: Treponema pallidum Ab (FTA-ABS Non Reactive (Non Reactive)
[2022-06-15 00:05] LABS: Lyme B. burgdorferi PCR Blood Negative (Negative)
[2022-06-15 09:24] LABS: Antinuclear Antibodies, IFA Negative (.)
== END ==
PROVIDERS: PCP Emergency Medicine; Visit Provider Emergency Medicine
DX: R06.02 Shortness of breath (principal); J44.9 Chronic obstructive pulmonary disease, unspecified; M51.36 Other intervertebral disc degeneration, lumbar region; E66.3 Overweight
CPT/HCPCS: 36415; 71046; 80053; 84550; 85025; 85651; 86038; 86431; 86593; 86780; 87476

== ENCOUNTER → 2022-07-10 14:45 | Outpatient (CLI) | payer BC, SELFPAY ==
[2022-07-10 16:04] LABS: Amphetamine/Metha Screen,Urine Negative ng/ml (<1000); Barbiturates Screen,Urine Negative ng/ml (<200); Benzodiazepines Screen,Urine Negative ng/ml (<200); Cannabinoid Screen,Urine Negative ng/ml (<50); Cocaine Screen,Urine Negative ng/ml (<300); Methadone Screen,Urine Negative ng/ml (<300); Opiate Screen,Urine Positive ng/ml (<300); Phencyclidine Screen,Urine Negative ng/ml (<25)
== END ==
PROVIDERS: PCP Emergency Medicine; Visit Provider Emergency Medicine
DX: Z79.899 Other long term (current) drug therapy (principal)
CPT/HCPCS: 80305

== ENCOUNTER → 2022-07-30 13:14 | Outpatient (CLI) | payer BC, SELFPAY ==
[2022-07-30 14:07] LABS: Basophils # 0.1 K/mm3 (0-0.2); Basophils % 1.2 % (0.1-2.0); Eosinophils # 0.1 K/mm3 (0.0-0.4); Eosinophils % 1.7 % (0.1-12.0); Hemoglobin 13.9 g/dL (12.2-16.2); Lymphocytes # 2.9 K/mm3 (0.7-4.5); Lymphocytes % 34.5 % (10-50); Mean Corpuscular HGB Conc 32.3 g/dL (31.8-35.4); Mean Corpuscular Volume 99.1 fl (81-99); Mean Platelet Volume 8.1 fl (7.4-10.4); Monocytes # 0.6 K/mm3 (0.1-1.0); Monocytes % 6.7 % (1.7-9.3); Neutrophils # 4.7 K/mm3 (1.8-7.8); Neutrophils % 55.9 % (37.0-80.0); Platelet Count 427 K/mm3 (142-424); Red Blood Count 4.34 M/mm3 (4.20-5.40); Red Cell Distribution Width 13.9 % (11.5-17.5); White Blood Count 8.4 K/mm3 (4.8-10.8)
[2022-07-30 14:11] LABS: Iron 43 ug/dL (37-170)
[2022-07-30 14:28] LABS: Total Iron Binding Capacity 343 ug/dL (265-497)
[2022-07-30 14:45] LABS: Ferritin 8.68 ng/ml (11.1-264)
== END ==
PROVIDERS: PCP Emergency Medicine; Visit Provider Internal Medicine Medical Oncology
DX: D47.1 Chronic myeloproliferative disease (principal)
CPT/HCPCS: 36415; 81270; 82728; 83540; 83550; 85025

== ENCOUNTER → 2022-09-01 10:12 | Outpatient (CLI) | payer BC, SELFPAY ==
[2022-09-01 14:26] LABS: Amphetamine/Metha Screen,Urine Negative ng/ml (<1000)
[2022-09-01 14:27] LABS: Barbiturates Screen,Urine Negative ng/ml (<200)
[2022-09-01 14:28] LABS: Benzodiazepines Screen,Urine Negative ng/ml (<200); Cannabinoid Screen,Urine Negative ng/ml (<50)
[2022-09-01 14:29] LABS: Cocaine Screen,Urine Negative ng/ml (<300)
[2022-09-01 14:30] LABS: Methadone Screen,Urine Negative ng/ml (<300); Opiate Screen,Urine Negative ng/ml (<300)
[2022-09-01 14:31] LABS: Phencyclidine Screen,Urine Negative ng/ml (<25)
== END ==
PROVIDERS: PCP Emergency Medicine; Visit Provider Emergency Medicine
DX: Z79.899 Other long term (current) drug therapy (principal)
CPT/HCPCS: 80305

== ENCOUNTER → 2022-10-28 23:09 | Outpatient (CLI) | payer BC, SELFPAY ==
[2022-10-28 14:39] LABS: Amphetamine/Metha Screen,Urine Negative ng/ml (<1000)
[2022-10-28 14:40] LABS: Barbiturates Screen,Urine Negative ng/ml (<200)
[2022-10-28 14:41] LABS: Benzodiazepines Screen,Urine Negative ng/ml (<200)
[2022-10-28 14:43] LABS: Cannabinoid Screen,Urine Negative ng/ml (<50)
[2022-10-28 14:44] LABS: Cocaine Screen,Urine Negative ng/ml (<300)
[2022-10-28 14:45] LABS: Methadone Screen,Urine Negative ng/ml (<300)
[2022-10-28 14:47] LABS: Phencyclidine Screen,Urine Negative ng/ml (<25)
[2022-10-28 14:48] LABS: Opiate Screen,Urine Negative ng/ml (<300)
== END ==
PROVIDERS: PCP Emergency Medicine; Visit Provider Emergency Medicine
DX: Z79.899 Other long term (current) drug therapy (principal)
CPT/HCPCS: 80305

== ENCOUNTER → 2022-12-29 15:36 | Outpatient (CLI) | payer BC, SELFPAY ==
[2022-12-29 18:25] LABS: Amphetamine/Metha Screen,Urine Negative ng/ml (<1000)
[2022-12-29 18:27] LABS: Cocaine Screen,Urine Negative ng/ml (<300)
[2022-12-29 18:38] LABS: Cannabinoid Screen,Urine Negative ng/ml (<50)
[2022-12-29 19:24] LABS: Barbiturates Screen,Urine Negative ng/ml (<200)
[2022-12-29 19:25] LABS: Benzodiazepines Screen,Urine Negative ng/ml (<200); Methadone Screen,Urine Negative ng/ml (<300)
[2022-12-29 19:27] LABS: Phencyclidine Screen,Urine Negative ng/ml (<25)
[2022-12-29 20:21] LABS: Opiate Screen,Urine Negative ng/ml (<300)
== END ==
PROVIDERS: PCP Emergency Medicine; Visit Provider Emergency Medicine
DX: Z79.899 Other long term (current) drug therapy (principal)
CPT/HCPCS: 80305

== ENCOUNTER → 2023-01-14 10:08 | Outpatient (CLI) | payer BC, SELFPAY ==
--- NOTE | 2023-01-14 10:08 | MR_ITS ---
FINAL REPORT CLINICAL HISTORY: neck pain. BILATERAL ARM PAIN. NO INJURY OR TRAUMA COMPARISON: February 26, 2022 FINDINGS: Multiplanar MR imaging of the cervical spine was performed without contrast. On the sagittal T2-weighted images, disc degeneration is seen at multiple levels. There is no evidence of fracture. There is there is kyphosis centered at C5 which is stable. Endplate changes are noted at multiple levels. The cervical spinal cord has an unremarkable appearance without evidence of mass, edema or syrinx. No significant canal stenosis is identified. The cervicomedullary junction is normal. C2-3: There is no significant canal stenosis or neural foraminal narrowing. C3-4: A disc bulge is present. There is a small right paracentral disc protrusion that mildly indents the thecal sac. No significant neural foraminal narrowing is seen. C4-5: A disc osteophyte complex is present. There is mild left neural foraminal narrowing. C5-6: A disc osteophyte complex is present. There is moderate right and severe left neural foraminal narrowing. C6-7: A disc osteophyte complex is present. There is moderate bilateral neural foraminal narrowing. C7-T1: A disc osteophyte complex is present. There is moderate bilateral neural foraminal narrowing. IMPRESSION: Multilevel degenerative disc disease and spondylosis with multilevel neural foraminal narrowing as described. The overall appearance is visually stable since the prior examination. Authenticated and ERN
== END ==
PROVIDERS: PCP Emergency Medicine; Visit Provider Emergency Medicine
DX: M54.2 Cervicalgia (principal)
CPT/HCPCS: 72141; 76376

== ENCOUNTER → 2023-02-17 01:10 | Outpatient (CLI) | payer BC, SELFPAY ==
[2023-02-17 21:27] LABS: Amphetamine/Metha Screen,Urine Negative ng/ml (<1000)
[2023-02-17 21:28] LABS: Barbiturates Screen,Urine Negative ng/ml (<200); Benzodiazepines Screen,Urine Negative ng/ml (<200)
[2023-02-17 21:29] LABS: Cannabinoid Screen,Urine Negative ng/ml (<50); Cocaine Screen,Urine Negative ng/ml (<300)
[2023-02-17 21:31] LABS: Methadone Screen,Urine Negative ng/ml (<300); Opiate Screen,Urine Positive ng/ml (<300)
[2023-02-17 21:32] LABS: Phencyclidine Screen,Urine Negative ng/ml (<25)
== END ==
PROVIDERS: PCP Emergency Medicine; Visit Provider Emergency Medicine
DX: Z79.899 Other long term (current) drug therapy (principal)
CPT/HCPCS: 80305

== ENCOUNTER → 2023-02-24 08:58 | Outpatient (POV) | payer BC, SELFPAY ==
--- NOTE | 2023-02-24 09:36 | EXP.PAIN.SOA ---
[facility] Pain Management SOAP Note Subjective:: Patient is a pleasant 57-year-old female who presents today for follow-up. We are currently treating the patient for degenerative disc disease of cervical and lumbar spine with cervical and lumbar radiculopathy symptoms, myofascial pain of the cervical paraspinous and trapezius muscles, sacroiliitis, greater trochanteric bursitis, neck pain. Today she rates her pain a 6 out of 10. Patient states that she is had increasing low back pain along the left side and into her left hip. Patient denies any new trauma or injury. She does describe this pain as an aching, throbbing sensation with some tingling and numbness that is worse with ambulation or prolonged positioning. It does affect her ability perform activities of daily living. Patient has had previous SI injections that did provide 100% improvement with her last injection being back in February 2022. Patient is currently managed with gabapentin 800 mg 3 times a day and [place] 10 mg 3 times a day from her primary care provider. She denies any side effects from this medication. She does also state that she is now on Humira for her rheumatoid arthritis. Her Maurice is [id number]. Its been reviewed and appropriate. Review of Systems: General: No recent weight changes, no fever, no sleep disturbances Respiratory: No cough, no shortness of air, no recurring pulmonary infections Cardiovascular/peripheral vascular: No chest pain, no palpitations, no edema, no shortness of breath Gastrointestinal: No new onset incontinence, normal bowel movements reported Genitourinary: No new onset incontinence Musculoskeletal: Low back pain, left hip pain Psychiatric: [Normal mood/affect] Neurological: [Denies weakness in extremities], [denies balance issues] Objective:: Physical Exam: General: Alert and oriented x3, no acute distress, pleasant and cooperative Lungs: Respirations even and unlabored, symmetrical chest expansion Eyes: PERRL Musculoskeletal: Flexion and extension of lumbar [spine] somewhat guarded secondary to pain, [antalgic gait noted] point tenderness along left SI with positive left Hoa's, Marvin's, Gaenslen's, compression and distraction exam Neurological: Speech clear, no gross sensory deficit Assessment:: Degenerative disc disease of cervical and lumbar spine with cervical and lumbar radiculopathy symptoms, sacroiliitis, greater trochanteric bursitis, myofascial pain of cervical paraspinous and trapezius muscles Plan:: Patient is experiencing worsening pain in her low back along the left side and into her left hip. Patient did have limited range of motion of her lumbar spine along with point tenderness at her left SI and a positive left Hoa's, Marvin's, Gaenslen's, compression and distraction exam. Patient has had SI injections in the past that did provide 100% relief lasting several months. I have discussed with the patient that she may benefit from a repeat left SI injection. Risk and benefits were explained to the patient and she would like to proceed forward with this plan of care. Patient will be scheduled for left SI injection. Patient has been instructed to contact the clinic with any concerns before the next appointment. Dr. Sarah has reviewed this note and agrees with this plan of care. This note was dictated using voice recognition software and make contain errors or omissions. [facility] Disclaimer: The information contained in this section may have been updated after the patient was seen, as this information can be updated by other users. Medical History COPD (chronic obstructive pulmonary disease) Dyspnea on exertion Family history of asthma Smoking greater than 30 pack years Tobacco abuse counseling Tobacco abuse disorder Surgical History History of facial surgery History of surgery on upper extremity Family History (Reviewed
[2023-02-24 11:13] VITALS: BP 127/82; PULSE 80; RESP 20; O2SAT 96; BMI 28.8
== END ==
PROVIDERS: PCP Emergency Medicine; Visit Provider Nurse Practitioner Family
DX: M50.10 Cervical disc disorder with radiculopathy, unspecified cervical region (principal); M51.16 Intervertebral disc disorders with radiculopathy, lumbar region; M46.1 Sacroiliitis, not elsewhere classified; M70.60 Trochanteric bursitis, unspecified hip; M79.18 Myalgia, other site
CPT/HCPCS: 99212; G0463

== ENCOUNTER → 2023-03-26 11:33 | Outpatient (POV) | payer BC, SELFPAY ==
--- NOTE | 2023-03-26 11:56 | A.OFFVIS_ITS ---
[facility] Pain Management SOAP Note Subjective:: This patient is a pleasant 57-year-old female that comes our clinic today for follow-up visit after receiving denial from insurance regarding left sacroiliac joint injection. Patient reports low lumbar back pain. Left posterior hip pain. Left leg radicular symptoms to the knee. She rates her pain 8/10. We do not have lumbar imaging. Her lumbar x-ray shows degenerative disc lumbar spine. Patient continues taking gabapentin 800 mg 1 p.o. 3 times daily and [place] 10 mg 1 p.o. 3 times daily from her PCP. Patient's Maurice #[id number] has been reviewed and appropriate. I recommend 6 weeks of physical therapy for the lumbar spine. Patient will return to see us following. We will request lumbar imaging following physical therapy. Objective:: Patient is awake alert [place] x3. In no acute distress. Flexion-extension lumbar spine somewhat guarded secondary to pain. Deep tendon reflexes upper lower extremities normal. There is no gross sensory deficit. Gait is normal. Assessment:: Degenerative disc lumbar spine. Lumbar radiculopathy. Left sacroiliitis. Degenerative disc cervical spine. Cervical radiculopathy. Plan:: We will send the patient for evaluation treatment physical therapy for the low back. She will return to see us at the completion of physical therapy. [facility] Disclaimer: The information contained in this section may have been updated after the patient was seen, as this information can be updated by other users. Medical History COPD (chronic obstructive pulmonary disease) Dyspnea on exertion Family history of asthma Smoking greater than 30 pack years Tobacco abuse counseling Tobacco abuse disorder Surgical History History of facial surgery History of surgery on upper extremity Family History Other Coronary artery disease Social History Smoking Status: Current every day smoker tobacco type: cigarettes packs per day: 1 alcohol intake: never substance use type: denies use current occupational status: other Travel in the last 8 weeks: None household members: none housing: house caffeine: Yes
[2023-03-26 12:11] VITALS: BP 144/94; PULSE 77; RESP 18; O2SAT 95; BMI 29.2
== END ==
PROVIDERS: PCP Nurse Anesthetist, Certified Registered; Visit Provider Nurse Anesthetist, Certified Registered
DX: M51.16 Intervertebral disc disorders with radiculopathy, lumbar region (principal); M46.1 Sacroiliitis, not elsewhere classified; M50.10 Cervical disc disorder with radiculopathy, unspecified cervical region
CPT/HCPCS: 99212; G0463

== ENCOUNTER → 2023-04-16 12:00 | Outpatient (CLI) | payer BC, SELFPAY ==
[2023-04-16 20:38] LABS: Amphetamine/Metha Screen,Urine Negative ng/ml (<1000); Barbiturates Screen,Urine Negative ng/ml (<200)
[2023-04-16 20:39] LABS: Benzodiazepines Screen,Urine Negative ng/ml (<200)
[2023-04-16 20:40] LABS: Cannabinoid Screen,Urine Negative ng/ml (<50); Cocaine Screen,Urine Negative ng/ml (<300)
[2023-04-16 20:41] LABS: Methadone Screen,Urine Negative ng/ml (<300)
[2023-04-16 20:42] LABS: Opiate Screen,Urine Positive ng/ml (<300); Phencyclidine Screen,Urine Negative ng/ml (<25)
== END ==
PROVIDERS: PCP Emergency Medicine; Visit Provider Emergency Medicine
DX: M51.16 Intervertebral disc disorders with radiculopathy, lumbar region (principal)
CPT/HCPCS: 80305

== ENCOUNTER 2023-05-18 09:00 | Outpatient (RCR) | payer BC, SELFPAY | END 2023-05-18 10:00 | disposition home or self-care (01) | LOC: PT 09:00 | PROVIDERS: PCP Nurse Anesthetist, Certified Registered; Visit Provider Nurse Practitioner Family | DX: M54.50 Low back pain, unspecified (principal); M25.552 Pain in left hip; M79.605 Pain in left leg | CPT/HCPCS: 97010; 97014; 97110; 97163; G0283 ==

== ENCOUNTER 2023-06-07 15:50 | Outpatient (CLI) | payer BC, SELFPAY ==
[2023-06-07 15:27] LABS: Amphetamine/Metha Screen,Urine Negative ng/ml (<1000); Barbiturates Screen,Urine Negative ng/ml (<200); Benzodiazepines Screen,Urine Negative ng/ml (<200); Cannabinoid Screen,Urine Negative ng/ml (<50); Cocaine Screen,Urine Negative ng/ml (<300); Methadone Screen,Urine Negative ng/ml (<300); Opiate Screen,Urine Positive ng/ml (<300); Phencyclidine Screen,Urine Negative ng/ml (<25)
[2023-06-13 10:09] LABS: Codeine Negative (Cutoff=100); Hydrocodone Positive (.); Hydromorphone Positive (.); Morphine Negative (Cutoff=100); Opiates Positive (.)
== END 2023-06-07 23:59 ==
LOC: LAB.DROPOF 15:51
PROVIDERS: PCP Family Medicine; Visit Provider Family Medicine
DX: Z79.899 Other long term (current) drug therapy (principal)
CPT/HCPCS: 80307; 80361; 80365; G0480

== ENCOUNTER 2023-06-18 14:31 | Outpatient (CLI) | payer BC, SELFPAY ==
[2023-06-18 14:48] LABS: Basophils # 0.1 K/mm3 (0-0.2); Basophils % 0.6 % (0.1-2.0); Eosinophils # 0.2 K/mm3 (0.0-0.4); Eosinophils % 2.4 % (0.1-12.0); Hemoglobin 15.7 g/dL (12.2-16.2); Lymphocytes # 3.6 K/mm3 (0.7-4.5); Mean Corpuscular HGB Conc 39.2 g/dL (31.8-35.4); Mean Corpuscular Volume 107.3 fl (81-99); Mean Platelet Volume 9.1 fl (7.4-10.4); Monocytes # 0.6 K/mm3 (0.1-1.0); Monocytes % 7.7 % (1.7-9.3); Neutrophils # 3.7 K/mm3 (1.8-7.8); Neutrophils % 45.3 % (37.0-80.0); Platelet Count 363 K/mm3 (142-424); Red Blood Count 3.72 M/mm3 (4.20-5.40); Red Cell Distribution Width 13.9 % (11.5-17.5); White Blood Count 8.2 K/mm3 (4.8-10.8)
[2023-06-18 14:51] LABS: Mean Corpuscular Hemoglobin 42.1 pg (27.0-31.2)
[2023-06-18 15:01] LABS: Chloride 104 mmol/L (98-107); Potassium 4.6 mmoL/L (3.5-5.1); Sodium 139 mmol/L (136-145)
[2023-06-18 15:04] LABS: Alanine Aminotransferase 24 U/L (12-78); Albumin Level 4.3 g/dl (3.5-5.0); Albumin/Globulin Ratio 1.7 (1.1-1.8); Alkaline Phosphatase 59 U/L (38-126); Anion Gap 11.6 mEq/L (5-15); Aspartate Amino Transferase 26 U/L (14-36); Bilirubin,Total 0.4 mg/dl (0.2-1.3); Blood Urea Nitrogen 13 mg/dl (7-17); Carbon Dioxide 28 mmol/L (22.0-30.0); Cholesterol 133 mg/dl (140-200); Estimated Glomerular Filt Rate 74 ml/min (>60); GFR (African American) 89 ML/MIN (>60); Globulin 2.6 g/dL (1.3-3.2); Total Protein,Serum 6.9 g/dl (6.3-8.2); Triglycerides 86 mg/dl (30-150); VLDL Cholesterol 17 mg/dL (0-40)
[2023-06-18 15:05] LABS: Calcium 9.6 mg/dl (8.4-10.2); Chol/HDL Ratio 3.3 (1-3.5); Glucose 93 mg/dl (74-100); HDL Cholesterol 40 mg/dl (40-60)
[2023-06-18 15:54] LABS: Hemoglobin A1C 5.6 % (4.0-6.0)
[2023-06-18 16:11] LABS: Vitamin B12 268 pg/mL (239-931)
[2023-06-18 16:35] LABS: Folate > 20.00 ng/mL
== END 2023-06-18 23:59 ==
LOC: LAB.DROPOF 14:32
PROVIDERS: Visit Provider Family Medicine
DX: Z79.899 Other long term (current) drug therapy (principal); E78.5 Hyperlipidemia, unspecified
CPT/HCPCS: 80053; 80061; 82607; 82746; 83036; 84443; 85025

== ENCOUNTER 2023-07-16 10:00 | Outpatient (RCR) | payer BC, SELFPAY | END 2023-07-16 11:15 | disposition home or self-care (01) | LOC: PT 10:00 | PROVIDERS: Visit Provider Family Medicine | DX: M54.12 Radiculopathy, cervical region (principal); M06.9 Rheumatoid arthritis, unspecified | CPT/HCPCS: 97010; 97014; 97035; 97110; 97163; 97530; G0283 ==

== ENCOUNTER 2023-07-20 07:16 | Outpatient (CLI) | payer BC, SELFPAY ==
--- NOTE | 2023-07-20 07:16 | CT_ITS ---
FINAL REPORT TECHNIQUE: Thin section axial images were obtained from the lung apices to the upper abdomen by computed tomography. Reformatted images were obtained and reviewed. This study was performed with techniques to keep radiation doses al low as reasonably achievable (ALARA). Individualized dose reduction techniques using automated exposure control or adjustment of mA and/or kV according to the patient's size were employed. CLINICAL HISTORY: lung cancer screening smoker 1 ppd x 41 years COMPARISON: 12/02/2021 FINDINGS: CHEST CT LOW DOSE 57-year-old female, current smoker, 41 pack year history. CTDI vol (mGy): 2.9 DLP (mGy-cm): 96.38 There is no axillary adenopathy. The precarinal adenopathy identified on the prior CT examination remained stable in appearance. The heart is normal in size. There is no pericardial or pleural effusion. Lung window images demonstrate a stable small nodule in the anterior right upper lobe, measuring 4 mm, unchanged since the prior CT.. Limited images of the upper abdomen are unremarkable. IMPRESSION: Lung-RADS category 2. Recommend 12 month follow up low dose chest CT. Reviewed, Interpreted and Dictated by Pablo Power MD Transcribed by Deepika Barbosa Authenticated and [facility]
--- NOTE | 2023-07-20 08:22 | PC.NURSE ---
PFT and 6 Minute Walk Test completed without incident. Albuterol 0.083% given via HHN, per protocol, Pt tolerated tx and procedure well.
[2023-07-20] MEDS: ALBUTEROL 0.083% 2.5 MG/3 ML NEB IH (08:24)
== END 2023-07-20 23:59 ==
LOC: RAD 07:16
PROVIDERS: PCP Family Medicine; Visit Provider Internal Medicine Pulmonary Disease
DX: R06.09 Other forms of dyspnea; F17.210 Nicotine dependence, cigarettes, uncomplicated
CPT/HCPCS: 71271; 94060; 94618; 94726; 94729

== ENCOUNTER 2023-09-03 15:30 | Outpatient (CLI) | payer BC, SELFPAY ==
--- NOTE | 2023-09-03 15:31 | MR_ITS ---
FINAL REPORT CLINICAL HISTORY: Dizziness, slurred speech 17 ml prohance FINDINGS: Multiplanar MR imaging of the brain was performed without and with contrast. Some of the images are degraded at the base of the brain of unknown etiology. There is mild age-appropriate atrophy. Scattered foci of increased T2 signal are seen in the cerebral white matter that have a nonspecific appearance but likely represent mild chronic ischemic/gliotic changes. A small chronic right frontal lacunar infarct is noted. There is no evidence of intracranial hemorrhage or mass. No abnormal ventricular dilatation is identified. There is no evidence of shift of the midline structures. No abnormal extra-axial fluid collection is seen. No area of abnormal restricted diffusion is identified. The posterior fossa and brainstem have an unremarkable appearance. No abnormal contrast enhancement is seen. Normal major vessel vascular flow voids are seen. IMPRESSION: Mild atrophy and chronic ischemic/gliotic changes. No acute intracranial abnormality. Authenticated and [facility]N
[2023-09-03 16:12] LABS: Blood Urea Nitrogen 10 mg/dl (7-17); Estimated Glomerular Filt Rate 74 ml/min (>60); GFR (African American) 89 ML/MIN (>60)
[2023-09-03] MEDS: GADOTERIDOL INJ 17ML SYRINGE 17 ML IV (16:25)
[2023-09-03] MEDS: SODIUM CHLORIDE 0.9% 10ML SYR (RAD ONLY) 10 ML IV (16:25)
== END 2023-09-03 23:59 ==
LOC: RAD 15:31
PROVIDERS: PCP Family Medicine; Visit Provider Specialist
DX: R42 Dizziness and giddiness (principal); G45.8 Other transient cerebral ischemic attacks and related syndromes
CPT/HCPCS: 36415; 70553; 82565; 84520; A9576

== ENCOUNTER 2024-03-01 10:00 | Outpatient (CLI) | payer BC, SELFPAY ==
[2024-03-01 17:50] LABS: Coronavirus 19, PCR Not Detected (NotDetected); Influenza A, PCR Not Detected (NotDetected); Influenza B, PCR Not Detected (NotDetected)
== END 2024-03-01 23:59 | disposition home or self-care (01) ==
LOC: LAB.DROPOF 03-02 13:59
PROVIDERS: Visit Provider Family Medicine
DX: R05.9 Cough, unspecified (principal)
CPT/HCPCS: 87636